=== PATIENT | male | born 1975 ===

== ENCOUNTER 2021-05-17 06:21 | Outpatient (REF) | payer OTHER, SELFPAY ==
[2021-05-17 06:56] LABS: MANUAL DIFF FLAG NO
[2021-05-17 06:59] LABS: Basophils Absolute Auto 0.1 X10*3/uL (0.0-0.2); Basophils Percent Auto 0.8 % (0-2); Eosinophils Absolute Auto 0.2 X10*3/uL (0.0-0.4); Eosinophils Percent Auto 2.1 % (0-4); Hematocrit 38.3 % (42-52); Hemoglobin 13.4 g/dl (14.0-18.0); Imm Gran Abs Auto 0.04 X10*3/uL (0.00-0.03); Imm Gran Pct Auto 0.5 % (0.0-0.4); Lymphocytes Absolute Auto 2.1 X10*3/uL (1.2-4.9); Lymphocytes Percent Auto 27.7 % (20-40); Mean Corpuscular Hemoglobin 31.5 pg (27.0-33.0); Mean Corpuscular Volume 90.1 fL (80-98); Mean Platelet Volume 9.6 fL (9.4-12.4); Monocytes Absolute Auto 0.6 X10*3/uL (0.1-1.2); Neutrophils Absolute Auto 4.7 X10*3/uL (2.0-8.3); Neutrophils Percent Auto 60.9 % (45-73); Platelet Count 316 X10*3/uL (160-400); Red Blood Count 4.25 X10*6/uL (4.60-5.80); Red Cell Distribution Width 12.4 % (11.0-16.0); White Blood Count 7.7 X10*3/uL (4.8-10.8)
[2021-05-17 07:01] LABS: Glucose Urine UA NEG (NEG); Leukocyte Esterase Urine NEG (NEG); Nitrite Urine NEG (NEG); Specific Gravity - Urine 1.025 (1.005-1.025); UACC Culture Trigger NO; Urine Blood 2+ (NEG); Urine Ketones NEG (NEG); Urine Protein NEG (NEG-TRACE)
[2021-05-17 07:03] LABS: Appearance Urine CLEAR; Color Urine YELLOW
[2021-05-17 07:13] LABS: Mucus Urine 2+ /LPF; WBC Urine 0-2 /HPF (0-4)
[2021-05-17 07:20] LABS: Alanine Aminotransferase 27 U/L (0-40); Albumin Level 4.3 g/dL (3.5-5.0); Alkaline Phosphatase 78 U/L (39-117); Anion Gap 9 (12-20); Aspartate Amino Transferase 18 U/L (5-37); Bilirubin Total 0.5 mg/dL (0.0-1.0); Blood Urea Nitrogen 10 mg/dL (9-16); Calcium 9.6 mg/dL (8.4-10.2); Carbon Dioxide 26 mmol/L (22-29); Chloride 109 mmol/L (96-108); Cholesterol 187 mg/dL; Estimated Glomerular Filt Rate > 60; Glucose Fasting 94 mg/dL (60-99); HDL Cholesterol 52 mg/dL; LDL Cholesterol Calculated 106 mg/dl; Potassium 4.1 mmol/L (3.3-5.1); Sodium 140 mmol/L (135-145); Total Protein 6.8 g/dL (6.5-8.0); Triglycerides 149 mg/dL
[2021-05-17 07:39] LABS: Prostate Specific Antigen Scr 1.77 ng/mL (<0.05-4.0); TSH reflex Free T4 1.17 uIU/mL (0.32-4.0); Vitamin D 25-OH Total 20.3 ng/mL (>30)
[2021-05-22 13:16] LABS: Treponema pallidum Ab FTA ABS Reactive (Nonreactive)
[2021-05-23 19:06] LABS: HSV 1 IgM IFA Negative (Negative); HSV 2 IgM IFA Negative (Negative)
== END 2021-05-17 06:22 | disposition home or self-care (01) ==
LOC: HO.LAB 06:21
PROVIDERS: PCP Internal Medicine; Visit Provider Internal Medicine
DX: Z00.00 Encounter for general adult medical examination without abnormal findings (principal); E78.00 Pure hypercholesterolemia, unspecified; E55.9 Vitamin D deficiency, unspecified; K13.70 Unspecified lesions of oral mucosa; Z86.19 Personal history of other infectious and parasitic diseases
CPT/HCPCS: 36415; 80053; 80061; 81001; 81003; 82306; 84153; 84443; 85025; 86695; 86696; 86780

== ENCOUNTER 2021-10-04 15:45 | Outpatient (REF) | payer OTHER, SELFPAY ==
--- NOTE | ~2021-10-04 | US_ITS ---
EXAMINATION: US RETROPERITONEAL LIMITED (RENAL ONLY) CLINICAL INFORMATION: Other microscopic hematuria. COMPARISON: CT abdomen and pelvis 12/05/2015. TECHNIQUE: Real-time imaging of the kidneys. FINDINGS: RIGHT KIDNEY: 11.6 x 5.0 x 5.1 cm (SAG x AP x TRV). The kidney is normal in size, contour, and echogenicity. Renal cortical thickness is normal. There is a 4 x 6 mm echogenic density in the cortex of the lower poles. Peripheral location is more suggestive of a cortical calcification or angiomyolipoma than a renal stone. No focal parenchymal lesions or hydronephrosis. LEFT KIDNEY: 10.5 x 6.0 x 6.0 cm (SAG x AP x TRV). The kidney is normal in size, contour, and echogenicity. Renal cortical thickness is normal. There is a 4 x 6 mm echogenic density in the midpole questionable for a stone. No focal parenchymal lesions or hydronephrosis. US/US renal BI IMPRESSION: Question left renal stone. 5 mm right lower pole echogenic lesion more suggestive of cortical calcification or angiomyolipoma than stone.
--- NOTE | ~2021-10-04 | XR_ITS ---
EXAMINATION: XR CHEST CLINICAL INFORMATION: Cough COMPARISON: 12/05/2015 TECHNIQUE: 2 views of the chest were obtained. FINDINGS: No significant abnormality is noted involving the heart, lungs, mediastinum, bony thorax or soft tissues. XR/XR chest 2V IMPRESSION: Unremarkable examination.
== END 2021-10-04 15:46 | disposition home or self-care (01) ==
LOC: HO.US 15:45
PROVIDERS: Visit Provider Internal Medicine
DX: R31.29 Other microscopic hematuria (principal); R05.9 Cough, unspecified; R09.89 Other specified symptoms and signs involving the circulatory and respiratory systems; F17.200 Nicotine dependence, unspecified, uncomplicated
CPT/HCPCS: 71046; 76775

== ENCOUNTER 2021-11-28 16:20 | Outpatient (REF) | payer OTHER, SELFPAY ==
[2021-11-29 07:52] LABS: Syphilis Screen Reactive (Nonreactive)
[2021-12-04 11:52] LABS: RPR Quantitative Non-Reactive (Nonreactive); T.Pallidum Particle Agg Test Reactive (Nonreactive)
== END 2021-11-28 16:21 | disposition home or self-care (01) ==
LOC: HO.LAB 16:20
PROVIDERS: PCP Internal Medicine; Visit Provider Internal Medicine
DX: Z11.3 Encounter for screening for infections with a predominantly sexual mode of transmission (principal); Z86.19 Personal history of other infectious and parasitic diseases
CPT/HCPCS: 36415; 86592; 86780

== ENCOUNTER 2022-08-05 18:53 | Emergency (ER) | payer OTHER, SELFPAY ==
--- NOTE | 2022-08-05 19:59 | ED.GENADULT ---
HPI - General Adult General Chief complaint: Fever <AYAN Hardy - Last Filed: 08/05/22 20:01> Stated complaint: Vomiting/Fever/Bodyaches <AYAN Hardy - Last Filed: 08/05/22 20:01> Time Seen by Provider: 08/05/22 21:56 <AYAN Hardy - Last Filed: 08/05/22 20:01> Source: patient <AYAN Hardy - Last Filed: 08/05/22 20:01> Mode of arrival: ambulatory <AYAN Hardy - Last Filed: 08/05/22 20:01> Limitations: no limitations <AYAN Hardy - Last Filed: 08/05/22 20:01> History of Present Illness HPI narrative: Patient with fever body aches rhinorrhea nausea diarrhea and dry cough for last 2 days his son is also sick no shortness of breath had low-grade fever <Arnav Bolton MD - Last Filed: 08/05/22 22:07> Related Data Home medications: Previous Rx's Medication Instructions Recorded benzonatate 200 mg capsule 200 mg PO TID PRN cough #30 caps 08/05/22 ibuprofen 600 mg tablet 600 mg PO Q6H PRN fever or pain 08/05/22 #30 tabs <AYAN Hardy - Last Filed: 08/05/22 20:01> Allergies/adverse reactions: Allergies Allergy/AdvReac Type Severity Reaction Status Date / Time No Known Allergies Allergy Verified 09/04/21 02:09 [No Known Allergies*] <AYAN Hardy - Last Filed: 08/05/22 20:01> Review of Systems Review of Systems: Yes all other systems are reviewed and are negative <Arnav Bolton MD - Last Filed: 08/05/22 22:07> PMFSH Past Medical History Medical History: Medical History Hyperlipemia Mixed hyperlipidemia Overweight (BMI 25.0-29.9) <AYAN Hardy - Last Filed: 08/05/22 20:01> Surgical History: Surgical History No history of previous surgery <AYAN Hardy - Last Filed: 08/05/22 20:01> Family History Family History: Family History Mother No problems noted. Father HTN (hypertension) <AYAN Hardy - Last Filed: 08/05/22 20:01> Social History Social History: Social History Housing: House Alcohol intake: former Patient Tobacco Use Status: Current everyday Tobacco user Cigarettes Per Day: 5 Second Hand Smoke Exposure: Yes Substance Use Type: Marijuana Advance Directives: No Advance Directives Information Provided: No service: No Current occupational status: employed <AYAN Hardy - Last Filed: 08/05/22 20:01> Physical Exam ED Vital Signs: Vital Signs - 24 hr 08/05/22 20:00 Temperature 101.2 F H Pulse Rate 83 Respiratory Rate 20 Blood Pressure 126/69 Pulse Oximetry 98 Oxygen Delivery Method Room Air BMI result Body Mass Index 30.4 <AYAN Hardy - Last Filed: 08/05/22 20:01> Vital Signs - 24 hr 08/05/22 20:00 Temperature 101.2 F H Pulse Rate 83 Respiratory Rate 20 Blood Pressure 126/69 Pulse Oximetry 98 Oxygen Delivery Method Room Air BMI result Body Mass Index 30.4 <Arnav Bolton MD - Last Filed: 08/05/22 22:07> Appearance: Alert. Oriented X3. No acute distress. ENT: Pharynx normal. Oral Mucosa moist Neck: Normal inspection. Neck supple. CVS: Normal heart rate and rhythm. Pulses normal. Respiratory: No respiratory distress. Equal air entry bilateral, no wheezing/rales/rhonchi Skin: Skin warm and dry. Normal skin color. Normal skin turgor. Extremities: No lower extremity edema. Neuro: Oriented X 3. <Arnav Bolton MD - Last Filed: 08/05/22 22:07> Course Course Course Narrative: RME performed by Gregoria Larkin PA-C. Patient is 46 year old male presenting to the department feeling generally unwell with body aches and a fever. COVID/RSV/Influenza and tylenol ordered. Patient placed back in the waiting room pending results and bed availability. <AYAN Hardy - Last Filed: 08/05/22 20:01> Medications Administered Discontinued Medications Generic Name Dose Route Start Last Admin Trade Name Freq PRN Reason Stop Dose Admin Acetaminophen 650 mg 08/05/22 20:01 08/05/22 20:05 Acetaminophen 325 Mg Tablet PO 08/05/22 20:02 650 mg ONCE ONE Administration <AYAN Hardy - Last Filed: 08/05/22 20:01> Medications Administered Discontinued Medications Generic Name Dose Route Start Last Admin Trade Name Freq PRN Reason Stop Dose Admin Acetaminophen 650 mg 08/05/22 20:01 08/05/22 20:05 Acetaminophen 325 Mg Tablet PO 08/05/22 20:02 650 mg ONCE ONE Administration <Arnav Bolton MD - Last Filed: 08/05/22 22:07> Medical Decision Making Lab Data Lab results reviewed: Yes I reviewed the patient's lab results. <Arnav Bolton MD - Last Filed: 08/05/22 22:07> Labs: Lab Results 08/05/22 Range/Units 20:07 Influenza Type A (PCR) POSITIVE A (Negative) Influenza Type B (PCR) NEGATIVE (Negative) RSV RNA Qual (PCR) NEGATIVE (Negative) SARS-CoV-2 RNA (RT-PCR) NEGATIVE (Negative) <AYAN Hardy - Last Filed: 08/05/22 20:01> Lab Results 08/05/22 Range/Units 20:07 Influenza Type A (PCR) POSITIVE A (Negative) Influenza Type B (PCR) NEGATIVE (Negative) RSV RNA Qual (PCR) NEGATIVE (Negative) SARS-CoV-2 RNA (RT-PCR) NEGATIVE (Negative) <Arnav Bolton MD - Last Filed: 08/05/22 22:07> Discharge Plan Discharge Clinical Impression: Influenza <AYAN Hardy - Last Filed: 08/05/22 20:01> Patient Disposition: Home, Self-Care <AYAN Hardy - Last Filed: 08/05/22 20:01> Instructions: Influenza (ED) <AYAN Hardy - Last Filed: 08/05/22 20:01> Additional Instructions: Stay hydrated Tylenol/Motrin for fever Cough drops as prescribed Social distancing as advised <AYAN Hardy - Last Filed: 08/05/22 20:01> Prescriptions: New benzonatate 200 mg capsule 200 mg PO TID PRN (Reason: cough) Qty: 30 0RF ibuprofen 600 mg tablet 600 mg PO Q6H PRN (Reason: fever or pain) Qty: 30 0RF <AYAN Hardy - Last Filed: 08/05/22 20:01> Stand Alone Forms: Work/School Release <AYAN Hardy - Last Filed: 08/05/22 20:01>
[2022-08-05 20:00] VITALS: BP 126/69; PULSE 83; RESP 20; TEMP 38.4; O2SAT 98; BMI 30.4
[2022-08-05] MEDS: Acetaminophen 325 MG TABLET 650 MG PO (20:05)
[2022-08-05 20:53] LABS: Influenza A PCR POSITIVE (Negative); Influenza B PCR NEGATIVE (Negative); Resp Syncy Virus RNA Qual PCR NEGATIVE (Negative); SARS COV2 PCR INHOUSE NEGATIVE (Negative)
[2022-08-05] MEDS: Ibuprofen 600 MG TABLET PO (22:41)
[2022-08-05] MEDS: Benzonatate 100 MG CAPSULE 200 MG PO (22:49)
--- NOTE | 2022-08-05 22:53 | PC.NURSE ---
Discharge instructions given and explained. Patient ambulates safely and independently. No apparent distress. All of patient's questions answered.
== END 2022-08-05 22:56 | disposition home or self-care (01) ==
PROVIDERS: Physician Assistant Medical; Emergency Provider Internal Medicine
DX: J10.1 Influenza due to other identified influenza virus with other respiratory manifestations (principal); R50.9 Fever, unspecified; M79.10 Myalgia, unspecified site; R05.9 Cough, unspecified; F17.210 Nicotine dependence, cigarettes, uncomplicated; Z20.822 Contact with and (suspected) exposure to COVID-19; Z71.6 Tobacco abuse counseling; Z79.899 Other long term (current) drug therapy
CPT/HCPCS: 0241U; 99283

== ENCOUNTER 2023-04-17 08:24 | Outpatient (REF) | payer OTHER, SELFPAY ==
[2023-04-17 08:37] LABS: MANUAL DIFF FLAG NO
[2023-04-17 09:43] LABS: Basophils Absolute Auto 0.1 X10*3/uL (0.0-0.2); Basophils Percent Auto 0.5 % (0-2); Eosinophils Absolute Auto 0.2 X10*3/uL (0.0-0.4); Eosinophils Percent Auto 1.7 % (0-4); Hematocrit 39.8 % (42.0-52.0); Hemoglobin 13.7 g/dl (14.0-18.0); Imm Gran Abs Auto 0.04 X10*3/uL (0.00-0.03); Imm Gran Pct Auto 0.4 % (0.0-0.4); Lymphocytes Absolute Auto 2.1 X10*3/uL (1.2-4.9); Lymphocytes Percent Auto 22.2 % (20-40); Mean Corpuscular HGB Conc 34.4 g/dl (31.0-36.0); Mean Corpuscular Hemoglobin 31.1 pg (27.0-33.0); Mean Corpuscular Volume 90.2 fL (80.0-98.0); Mean Platelet Volume 10.3 fL (9.4-12.4); Monocytes Absolute Auto 0.6 X10*3/uL (0.1-1.2); Monocytes Percent Auto 5.9 % (2-11); Neutrophils Absolute Auto 6.7 x10*3/uL (2.0-8.3); Neutrophils Percent Auto 69.3 % (45-73); Platelet Count 318 X10*3/uL (160-400); Red Blood Count 4.41 X10*6/uL (4.60-5.80); Red Cell Distribution Width 11.9 % (11.0-16.0); White Blood Count 9.6 X10*3/uL (4.8-10.8)
[2023-04-17 10:12] LABS: Urine Cytology See Pathology rpt
[2023-04-17 10:32] LABS: Appearance Urine Clear; Color Urine Yellow; Glucose Urine UA Negative (Negative); Leukocyte Esterase Urine Negative (Negative); Nitrite Urine Negative (Negative); Specific Gravity - Urine 1.025 (1.005-1.025); UMIC TRIGGER UACC YES; Urine Blood Moderate (2+) (Negative); Urine Ketones Trace mg/dL (Negative); Urine Protein Negative (Neg-Trace)
[2023-04-17 10:41] LABS: Bacteria Urine None Seen (None Seen); Hyaline Casts Urine 0-2 /LPF (0-2); Squamous Epithelial Cell Urine 0-2 /HPF (0-2); WBC Urine 0-5 /HPF (0-5)
[2023-04-17 10:56] LABS: Alanine Aminotransferase 18 U/L (0-40); Albumin Level 4.3 g/dL (3.5-5.0); Alkaline Phosphatase 83 U/L (39-117); Anion Gap 11 (12-20); Aspartate Amino Transferase 19 U/L (5-37); Bilirubin Total 0.6 mg/dL (0.0-1.0); Blood Urea Nitrogen 14 mg/dL (9-16); Calcium 9.7 mg/dL (8.4-10.2); Carbon Dioxide 24 mmol/L (22-29); Chloride 109 mmol/L (96-108); Cholesterol 165 mg/dL; Estimated Glomerular Filt Rate > 60; Glucose Fasting 90 mg/dL (60-99); HDL Cholesterol 43 mg/dL; LDL Cholesterol Calculated 100 mg/dl; Potassium 4.2 mmol/L (3.3-5.1); Sodium 140 mmol/L (135-145); Total Protein 7.4 g/dL (6.5-8.0); Triglycerides 110 mg/dL
[2023-04-17 10:57] LABS: Prostate Specific Antigen Scr 0.82 ng/mL (<0.05-4.0)
[2023-04-17 11:14] LABS: TSH reflex Free T4 0.63 uIU/mL (0.32-4.0); Vitamin D 25-OH Total 30.1 ng/mL (>30)
== END 2023-04-17 08:25 | disposition home or self-care (01) ==
LOC: HO.LAB 08:24
PROVIDERS: PCP Internal Medicine; Visit Provider Internal Medicine
DX: Z01.818 Encounter for other preprocedural examination (principal); E78.00 Pure hypercholesterolemia, unspecified; K59.00 Constipation, unspecified; R30.0 Dysuria; R31.1 Benign essential microscopic hematuria; E55.9 Vitamin D deficiency, unspecified; Z12.5 Encounter for screening for malignant neoplasm of prostate
CPT/HCPCS: 36415; 80053; 80061; 81001; 82306; 84153; 84443; 85025; 88112

== ENCOUNTER 2023-04-17 11:18 | Outpatient (AMB) | payer OTHER, SELFPAY ==
[2023-04-17 11:37] VITALS: BP 127/69; PULSE 62; BMI 30.8
--- NOTE | 2023-04-17 11:37 | MHC.OFFVIS ---
Intake Vital Signs 04/17/23 11:37 Height 5 ft 8 in Weight 202 lb 6.15 oz BMI 30.8 BP 127/69 Blood Pressure Location Lt brachial Position Sitting Pulse 62 Intake Visit Reasons: Colonoscopy Screening Intake Note: Ruben presents in office as a new.patient for a colonoscopy screening . PT CC: pt reports having GERD pt denies any other GI Issues Community Representative Required: No Accompanied by: Self / Same As Patient Allergies No Known Allergies [No Known Allergies*] Allergy (Verified 04/17/23 11:39) HPI Colonoscopy Screening HPI Details 47 year old? male here today for pre colonoscopy screening.? Patient was sent to us by his PCP.? This is his first colonoscopy screening.? Patient denies any gastrointestinal symptoms in the past or at present.? However patient does report occasional acid reflux depending on what he eats. Reports occasional constipation. Denies melena, hematochezia, unintentional weight loss or ribbon like stools. Denies any personal or family history of gastrointestinal disease, colon polyps, or cancer.? Denies history of difficulty with sedation or anesthesia in the past.? Negative for history of sleep apnea.? Denies any history of cardiac, renal, pulmonary, or hepatic disease.?? No history of infectious? diseases like hepatitis A, B, C, HIV or tuberculosis.? Patient is not on any anticoagulation therapy. PFSH Medical History Mixed hyperlipidemia Overweight (BMI 25.0-29.9) Smoker Surgical History No history of previous surgery Family History Mother No problems noted. Father HTN (hypertension) Social History Housing: House Alcohol intake: former Patient Tobacco Use Status: Current everyday Tobacco user Cigarettes Per Day: 5 e-Cigarette/Vaping Use: Never Used Second Hand Smoke Exposure: Yes Substance Use Type: Marijuana service: No Current occupational status: employed Cognitive needs: No Hearing needs: No Vision needs: No Review of Systems Const Denies weight gain and Denies weight loss ENT Reports no additional complaints, Denies dysphagia and Denies odynophagia Card Reports no additional complaints Resp Reports no additional complaints GI Denies abdominal pain, Denies belching, Denies melena, Denies bloating, Denies change in bowel habits, Denies dysphagia, Denies excessive flatus, Denies dyspepsia, Reports heartburn (Occasional), Denies diarrhea, Denies loose stools, Denies nausea, Denies odynophagia and Denies vomiting Reports no additional complaints Musc Reports no additional complaints Neuro Reports no additional complaints Psych Reports no additional complaints Endo Reports no additional complaints Physical Exam Vital Signs: Last Vital Signs Pulse 62 04/17/23 11:37 BP 127/69 04/17/23 11:37 BMI result Body Mass Index 30.8 Const General: healthy appearing, no acute distress and well developed Nutritional Appearance: obese Orientation/consciousness: patient oriented x3 HEENT Head: Yes normal to inspection, Yes normocephalic and Yes atraumatic Face and sinus: Yes normal facial exam Mouth: Normal oral and palatal mucosa present Throat: Yes posterior oropharynx normal, Yes tonsils normal and Yes uvula midline Eyes General: appearance normal, both eyes and all related structures Neck Neck: Yes normal visual inspection, Yes full ROM and Yes trachea midline Thyroid: Thyroid normal Resp Effort & Inspection: normal respiratory effort, able to speak in complete sentences, no tracheal deviation and symmetric chest movement Auscultation: clear to auscultation bilaterally Cardio Rate: regular rate Heart sounds: S1 normal heart sound present and S2 normal heart sound present GI Inspection: Yes normal to inspection, No distended and Yes obesity Palpation (GI): Soft to palpation, not firm, nontender and No hepatosplenomegaly present Auscultation: normal bowel sounds General: Yes no CVA tenderness Back/Spine/Pelvis Back: no CVA tenderness Skin General skin exam: elasticity normal, turgor normal and dry skin Neuro General: patient oriented x3 Psych Appearance: grossly normal Mental Status: mental status grossly normal Speech and movement: Normal speech and movement present Assessment & Plan Assessment & Plan (1) Colon cancer screening: Code(s): Z12.11 - Encounter for screening for malignant neoplasm of colon Plan: Patient denies any GI, cardiac or respiratory symptoms.? Denies any issues with anesthesia in the past.? Denies any history of sleep apnea.? No history infectious diseases in the past or present.? Not on any anticoagulation therapy.? No family or personal history of colon cancer or polyps.? Patient denies melena, hematochezia, unintentional weight loss or ribbon like stools.? Discussed at length the pre-procedure,? prep, diet & medications as well as what to expect prior, during and after the procedure.?? Stressed the importance of good bowel prep. ?Recommended the use of Vaseline or Calmoseptine OTC & baby wipes with bowel movements to promote comfort.? ?Patient verbalizes understanding and agrees to plan of care.? She was given the opportunity to ask questions and all questions answered.? We will see her after the procedure.? Medications: New bisacodyl (Dulcolax (bisacodyl)) take 2 tabs at noon the day before your colonoscopy 10 mg (2 x 5 mg) PO ONCE 1 day 2 tabs 0RF Z12.11 - Encounter for screening for malignant neoplasm of colon docusate sodium 100 mg PO BEDTIME 90 caps 3RF K59.00 - Constipation, unspecified polyethylene glycol 3350 (Miralax) As directed by gastroenterology department at [facility] 238 grams PO ONCE 238 grams 0RF Z12.11 - Encounter for screening for malignant neoplasm of colon Coding Level of Care Code New Pt Level 3 (51776) Diagnoses Colon cancer screening Z12.11 Time Spent (min) 40 Comment 30 minutes spent with patient and additional 10 minutes spent reviewing his records
== END 2023-04-17 12:05 | disposition home or self-care (01) ==
PROVIDERS: PCP Internal Medicine; Visit Provider Nurse Practitioner Family
DX: Z01.818 Encounter for other preprocedural examination (principal); Z12.11 Encounter for screening for malignant neoplasm of colon
CPT/HCPCS: S0285

== ENCOUNTER 2023-12-28 09:56 | Emergency (ER) | payer BC, SELFPAY ==
--- NOTE | ~2023-12-28 | CT_ITS ---
EXAMINATION: CT FACIAL BONES WITH CONTRAST CLINICAL INFORMATION: Question right-sided dental abscess. TMJ pain. COMPARISON: None available. TECHNIQUE: Multidetector helical imaging acquired in the axial plane following intravenous administration of 85 mL of Omnipaque 350. This CT examination was performed using dose optimization techniques as appropriate, variously including the following: *Automated exposure control *Adjustment of mA and/or kV according to patient size (this includes techniques or standardized protocols for targeted exams where dose is matched to indication/reason for exam; i.e. extremities or head) *Use of iterative reconstruction technique DLP: 281 mGy-cm FINDINGS: No periapical lucencies are seen in the dentition. There is what may represent a small remnant of a severely broken down right mandibular molar tooth with associated dental caries. The remaining dentition appears normal. No gingivobuccal soft tissues inflammatory changes are clearly seen, though assessment is somewhat limited due to dental amalgam artifacts from the right second maxillary molar. The oral cavity, pharyngeal mucosal space, and imaged larynx appears normal. No abnormal retropharyngeal fluid collection is seen. The carotid sheath vasculature opacifies normally. The submandibular and parotid glands are normal. No upper cervical adenopathy is seen. The temporomandibular joints are normal. The middle ear cavities and mastoid air cells are well aerated. The paranasal sinuses are clear. Leftward nasal septal deviation noted. The orbits are normal in appearance. The craniovertebral junction is normal. Mild to moderate spondylosis partially visualized at the C5-C6 level. The imaged portions of the brain demonstrate no acute abnormality. CT/CT facial bones w IV con IMPRESSION: Small remnant of what may represent a severely broken down right mandibular molar tooth with associated dental caries. No periapical disease otherwise seen. No discernible soft tissue fluid collection or cervical adenopathy. Correlate with findings on direct visual inspection.
[2023-12-28 10:02] VITALS: BP 126/90; PULSE 90; RESP 16; TEMP 37; O2SAT 100; BMI 25.5
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
[2023-12-28 11:07] LABS: MANUAL DIFF FLAG NO
[2023-12-28 11:16] LABS: Basophils Absolute Auto 0.1 X10*3/uL (0.0-0.2); Basophils Percent Auto 0.7 % (0-2); Eosinophils Absolute Auto 0.2 X10*3/uL (0.0-0.4); Eosinophils Percent Auto 1.4 % (0-4); Hematocrit 36.6 % (42.0-52.0); Hemoglobin 12.9 g/dl (14.0-18.0); Imm Gran Abs Auto 0.03 X10*3/uL (0.00-0.03); Imm Gran Pct Auto 0.3 % (0.0-0.4); Lymphocytes Absolute Auto 2.2 X10*3/uL (1.2-4.9); Lymphocytes Percent Auto 19.8 % (20-40); Mean Corpuscular HGB Conc 35.2 g/dl (31.0-36.0); Mean Corpuscular Hemoglobin 31.6 pg (27.0-33.0); Mean Corpuscular Volume 89.7 fL (80.0-98.0); Mean Platelet Volume 9.4 fL (9.4-12.4); Monocytes Absolute Auto 0.7 X10*3/uL (0.1-1.2); Monocytes Percent Auto 5.8 % (2-11); Neutrophils Absolute Auto 8.1 x10*3/uL (2.0-8.3); Platelet Count 300 X10*3/uL (160-400); Red Blood Count 4.08 X10*6/uL (4.60-5.80); Red Cell Distribution Width 12.2 % (11.0-16.0); White Blood Count 11.2 X10*3/uL (4.8-10.8)
[2023-12-28 11:19] LABS: Appearance Urine Clear; Color Urine Yellow; Glucose Urine UA Negative (Negative); Leukocyte Esterase Urine Negative (Negative); Nitrite Urine Negative (Negative); Specific Gravity - Urine 1.025 (1.005-1.025); UMIC TRIGGER UACC YES; Urine Blood Small (1+) (Negative); Urine Ketones Negative (Negative); Urine Protein Negative (Neg-Trace)
[2023-12-28 11:21] LABS: Bacteria Urine None Seen (None Seen); Hyaline Casts Urine 0-2 /LPF (0-2); Squamous Epithelial Cell Urine 0-2 /HPF (0-2); WBC Urine 0-5 /HPF (0-5)
[2023-12-28 11:22] LABS: Alanine Aminotransferase 27 U/L (0-40); Albumin Level 4.1 g/dL (3.5-5.0); Alkaline Phosphatase 75 U/L (39-117); Anion Gap 9 (12-20); Aspartate Amino Transferase 25 U/L (5-37); Bilirubin Total 0.5 mg/dL (0.0-1.0); Blood Urea Nitrogen 11 mg/dL (9-16); Carbon Dioxide 25 mmol/L (22-29); Chloride 111 mmol/L (96-108); Creatinine Clr Calc Pharmacy 91.8; Estimated Glomerular Filt Rate > 60; Glucose Random 99 mg/dL (60-115); Potassium 4.1 mmol/L (3.3-5.1); Sodium 141 mmol/L (135-145); Total Protein 6.9 g/dL (6.5-8.0)
[2023-12-28 11:22] LABS: IDNOW Serial# 08D9AD1C
[2023-12-28 11:23] LABS: Strep A Nucleic Acid Negative (Negative)
[2023-12-28 11:26] LABS: Influenza A PCR NEGATIVE (Negative); Influenza B PCR NEGATIVE (Negative); Resp Syncy Virus RNA Qual PCR NEGATIVE (Negative); SARS COV2 PCR INHOUSE NEGATIVE (Negative)
[2023-12-28 11:27] LABS: Amphetamine Screen Urine Not Detected (Not Detect); Barbiturates, Urine Not Detected (Not Detect); Benzodiazepines Screen Urine Not Detected (Not Detect); Buprenorphine Scr Not Detected (Not Detect); Cannabinoid Screen Urine POSITIVE (Not Detect); Cocaine Screen Urine Not Detected (Not Detect); Fentanyl, urine Not Detected (Not Detect); Methadone Screen, Urine Not Detected (Not Detect); Opiate Screen Urine Not Detected (Not Detect); Oxycodone Screen Urine Not Detected (Not Detect); Phencyclidine Screen Urine Not Detected (Not Detect)
[2023-12-28] MEDS: iohexoL 350 MG/ML 100 ML INFUS..BTL IV (11:41)
[2023-12-28] MEDS: diazePAM 2 MG TABLET PO (11:44)
[2023-12-28] MEDS: Ketorolac Tromethamine 15 MG/ML VIAL 30 MG IVPUSH (11:44)
--- NOTE | 2023-12-28 11:49 | PC.NURSE ---
called lab as tech sent covid/flu/rsv swab earlier and still says ordered. per batool brock ok to eat- pt eating w/o issues. no resp distress.
[2023-12-28 13:39] VITALS: BP 110/71; PULSE 88; RESP 18; TEMP 37; O2SAT 100
== END 2023-12-28 13:30 | disposition home or self-care (01) ==
PROVIDERS: Physician Assistant; Emergency Provider Emergency Medicine; PCP Internal Medicine
DX: R68.84 Jaw pain (principal); K04.7 Periapical abscess without sinus; J02.9 Acute pharyngitis, unspecified; R05.9 Cough, unspecified; E78.2 Mixed hyperlipidemia; F17.200 Nicotine dependence, unspecified, uncomplicated; Z11.52 Encounter for screening for COVID-19; Z20.828 Contact with and (suspected) exposure to other viral communicable diseases; Z79.899 Other long term (current) drug therapy
CPT/HCPCS: 0241U; 36415; 70487; 80053; 80307; 81001; 85025; 87651; 96374; 99284; J1885; Q9967

== ENCOUNTER 2023-12-31 13:05 | Emergency (ER) | payer BC, SELFPAY ==
[2023-12-31 13:34] VITALS: BP 148/82; PULSE 83; RESP 20; TEMP 37; O2SAT 100; BMI 24.7
--- NOTE | 2023-12-31 13:34 | ED_ITS ---
HPI - General Adult General Chief complaint: Behavioral Concerns Stated complaint: Feels hyper? Wants to be checked Time Seen by Provider: 12/31/23 14:43 Source: patient Mode of arrival: EMS Limitations: no limitations History of Present Illness HPI narrative: 48-year-old male with no past medical history of past psychiatric history that he reports who presents emergency department for evaluation of gosia. The patient states that 3 or 4 days ago he drank 20 red bolus and since that time he has not been able to sleep. He states he has only been able to sleep 2-3 hours per night. He states that he has had a good appetite and has had no weight loss or weight gain. He denied fever, chills or night sweats. The patient told me that his and his boss our concern that he has gosia. The patient states that he loves everybody and his and boss were concerned that he might get hurt because of his behavior. 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 the patient states he does smoke cigarettes. He denies alcohol use. He states that he does smoke marijuana 3 times a day but does not use any other drugs. Patient denies SI or HI. Related Data Previous Rx's ?Medication ?Instructions ?Recorded loratadine 10 mg tablet 10 mg PO DAILY PRN allergy 01/23/23 symptoms 90 days #90 tabs bisacodyl 5 mg tablet,delayed 10 mg (2 x 5 mg) PO ONCE 1 day #2 04/17/23 release (Dulcolax (bisacodyl)) tabs docusate sodium 100 mg capsule 100 mg PO BEDTIME #90 caps 04/17/23 polyethylene glycol 3350 17 238 g PO ONCE #238 grams 04/17/23 gram/dose oral powder (Miralax) amoxicillin 875 mg-potassium 1 tab PO BID 7 days #14 tabs 12/28/23 clavulanate 125 mg tablet cyclobenzaprine 10 mg tablet 10 mg PO BEDTIME PRN muscle spasm 12/28/23 #7 tabs ketorolac 10 mg tablet 10 mg PO TID PRN pain 5 days #15 12/28/23 tabs Allergies Allergy/AdvReac Type Severity Reaction Status Date / Time No Known Allergies Allergy Verified 12/31/23 13:39 [No Known Allergies*] Review of Systems 2 Review of Systems: Yes all other systems are reviewed and are negative [facility] Past Medical History Medical History Overweight (BMI 25.0-29.9) Smoker Mixed hyperlipidemia Surgical History No history of previous surgery Family History Family History Mother No problems noted. Father HTN (hypertension) Social History Social History Housing: House Alcohol intake: never Patient Tobacco Use Status: Current everyday Tobacco user Cigarettes Per Day: 5 Smoked in Last 30 Days: Yes e-Cigarette/Vaping Use: Never Used Second Hand Smoke Exposure: Yes Use of substances other than those prescribed or required for medical reasons: Yes Substance Use Type: Marijuana Substance Use Frequency: Daily Last Used Substance: Hours (ago) Any prior treatment program specific to substance use: No Advance Directives: No Advance Directives Information Provided: Yes Do you have a plan to hurt others: No Plan service: No Current occupational status: employed Cognitive needs: No Hearing needs: No Vision needs: No Physical Exam ED Vital Signs: Vital Signs - 24 hr 12/31/23 13:34 12/31/23 15:09 Temperature 98.6 F 98.9 F Pulse Rate 83 69 Respiratory Rate 20 18 Blood Pressure 148/82 H 127/71 Pulse Oximetry 100 99 Oxygen Delivery Method Room Air Room Air BMI result Body Mass Index 24.7 Vital signs revealed an elevated blood pressure of 148/82 in an elevated respiratory rate of 20 Exam: General: Awake, alert in no distress, patient does appear to be manic Head: Normocephalic, atraumatic EENT: PERRL, Lids normal, sclera normal, conjunctiva normal, nose normal , ears normal, throat without erythema or exudates Neck: Supple, no adenopathy Lung: breath sounds symmetric, no wheezing, rales or rhonchi Chest: symmetric movement, nontender Heart: regular rate and rhythm, normal S1, S2 no murmurs or rubs Abdomen: soft, non-tender, nondistended, normal bowel sounds Back: no vertebral tenderness, no CVAT Extremities: no deformities, moves all extremities symmetrically Neuro: Awake, alert, oriented, normal speech, cranial nerves intact, moves all extremities symmetrically Psych: patient appears to be very happy and manic, has very rapid speech , he states he loves every but any loves everybody in the [employer] Course Course Course Narrative: This is an RME: Additional HPI, ROS, PE not included below will be deferred to primary provider. This is a 18-wzbj-myb-male, with a hx of HLD, who presents to the ER with complaints of too much energy . Pt states that 3 days ago he has felt like I have too much power, energy, this is not me . He states that he has been drinking alot of red bull , he states that two nights ago he had about 10 red bulls. He states that he was seen at HR from his job due to concerns for his hyperness. No suicidal or homicidal ideation. No visual or auditory hallucination. Patient with pressured speech, excessive energy, however thoughts circumstantial and tangential. Plan: Labs, EKG Medications Administered Discontinued Medications Generic Name Dose Route Start Last Admin Trade Name Freq PRN Reason Stop Dose Admin Lorazepam 2 mg 12/31/23 15:21 12/31/23 15:27 Lorazepam 1 Mg Tablet PO 12/31/23 15:22 2 mg ONCE STA Administration Medical Decision Making Medical Decision Making [facility] Narrative: 48-year-old male with no significant past medical history or psychiatric history who was brought to the emergency department for evaluation of gosia and sleeping for only 2-3 hours per day over the last 3-4 days. The patient states he drank 10-20 red bull drinks 3 days prior but has not had any since that time. Patient was noted to be manic by his in his employer and was brought to emergency department for evaluation. Patient's vital signs revealed an elevated blood pressure and elevated respiratory rate otherwise was unremarkable. The patient does smoke marijuana 3 times a day but denies using any other drugs. Physical examination is consistent with acute gosia.Patient denies SI or HI. Differential diagnosis: Includes but is not limited to Anxiety, gosia, electrolyte abnormalities, anemia, hyperthyroidism Following evaluation was ordered: CBC, BMP, liver panel,, TSH with reflex T4, UA,, ethanol level, troponin, EKG Patient was initially treated with the following: Ativan 2 mg orally Course: 16:35 My independent interpretation patient's laboratory evaluation as follows: Normocytic anemia with an H&H of 12.1 and 34.2. BNP and liver panel were normal. Drug screen urine positive for marijuana only. Ethanol below detectable limits. The patient's TSH was normal. Urinalysis was positive for blood. Microscopic revealed 11-20 RBCs, 0-5 WBCs and no bacteria. Given the patient's negative workup, I suspect that his gosia is psychiatric and at this point he is medically cleared for care team evaluation. 17:40 The patient was evaluated by the care team. I did speak with the patient with the care team provider and during the interview, patient appeared to be last manic. Patient is not paranoid, he has not suicidal or homicidal. He seems motivated to continue to work at [employer] and states that stopped working at [employer] since he had dry on energy drinks in order to stay awake. The care team provider did talk to the patient's who feels comfortable with the patient being discharged home. Care team will arrange follow-up over the next several days to evaluate the patient for possibly worsening gosia. Patient was given printed and verbal instructions and discharged home. Admission/Observation Consideration of admission/observation: Escalation of care including admission/observation considered Consult Healthcare Provider Management of the patient was discussed with: [employer] (Care team) Lab Data MDM Lab Attestation statement: I reviewed the patient's lab results. 12/31/23 13:56 12/31/23 13:56 Labs: Lab Results 12/31/23 Range/Units 13:56 WBC 9.6 (4.8-10.8) X10*3/uL RBC 3.81 L (4.60-5.80) X10*6/uL Hgb 12.1 L (14.0-18.0) g/dl Hct 34.2 L (42.0-52.0) % MCV 89.8 (80.0-98.0) fL MCH 31.8 (27.0-33.0) pg MCHC 35.4 (31.0-36.0) g/dl RDW 12.4 (11.0-16.0) % Plt Count 294 (160-400) X10*3/uL MPV 9.8 (9.4-12.4) fL Immature Gran % (Auto) 0.3 (0.0-0.4) % Neut % (Auto) 78.3 H (45-73) % Lymph % (Auto) 15.4 L (20-40) % [place] % (Auto) 5.0 (2-11) % Eos % (Auto) 0.4 (0-4) % Baso % (Auto) 0.6 (0-2) % Lymph # (Auto) 1.5 (1.2-4.9) X10*3/uL [place] # (Auto) 0.5 (0.1-1.2) X10*3/uL Eos # (Auto) 0.0 (0.0-0.4) X10*3/uL Baso # (Auto) 0.1 (0.0-0.2) X10*3/uL Abs Immat Gran (auto) 0.03 (0.00-0.03) X10*3/uL Absolute Neuts (auto) 7.5 (2.0-8.3) x10*3/uL Absolute Nucleated RBC 0.000 (0.0-0.012) X10*3/uL Nucleated RBC % (auto) 0.0 (0.0-0.2) /100WBC Sodium 140 (135-145) mmol/L Potassium 3.8 (3.3-5.1) mmol/L Chloride 109 H (96-108) mmol/L Carbon Dioxide 27 (22-29) mmol/L Anion Gap 8 L (12-20) BUN 17 H (9-16) mg/dL Creatinine 1.12 (0.5-1.4) mg/dL Estim Creat Clear Calc 79.7 Estimated GFR > 60 Random Glucose 98 (60-115) mg/dL Calcium 9.2 (8.4-10.2) mg/dL Total Bilirubin 0.4 (0.0-1.0) mg/dL Direct Bilirubin 0.1 (0.0-0.5) mg/dL AST 38 H (5-37) U/L ALT 35 (0-40) U/L Alkaline Phosphatase 74 (39-117) U/L Troponin I High Sens < 2.7 (<3.5-35.0) ng/L Total Protein 7.1 (6.5-8.0) g/dL Albumin 4.4 (3.5-5.0) g/dL TSH 0.65 (0.32-4.0) uIU/mL Urine Color Yellow Urine Appearance Clear Urine pH 7.5 (5.0-9.0) Ur Specific [place] 1.025 (1.005-1.025) Urine Protein Negative (Neg-Trace) mg/dL Urine Glucose (UA) Negative (Negative) mg/dL Urine Ketones Negative (Negative) mg/dL Urine Blood Small (1+) H (Negative) Urine Nitrite Negative (Negative) Ur Leukocyte Esterase Negative (Negative) Urine RBC 11-20 H (0-2) /HPF Urine WBC 0-5 (0-5) /HPF Ur Squamous Epith Cells 0-2 (0-2) /HPF Urine Bacteria None Seen (None Seen) Hyaline Casts 0-2 (0-2) /LPF Urine Opiates Screen Not Detected (Not Detect) Ur Buprenorphine Scrn Not Detected (Not Detect) ng/mL Ur Oxycodone Screen Not Detected (Not Detect) ng/mL Urine Methadone Screen Not Detected (Not Detect) ng/mL Urine Fentanyl Screen Not Detected (Not Detect) Ur Barbiturates Screen Not Detected (Not Detect) Ur Phencyclidine Scrn Not Detected (Not Detect) Ur Amphetamines Screen Not Detected (Not Detect) U Benzodiazepines Scrn Not Detected (Not Detect) Urine Cocaine Screen Not Detected (Not Detect) U Marijuana (THC) Screen POSITIVE H (Not Detect) Ethyl Alcohol < 10 mg/dL Discharge Plan Discharge Clinical Impression: Insomnia, Gosia Patient Disposition: Home, Self-Care Additional Instructions: Your evaluated by the care team and by me. At this time, we feel that it is okay to send you home, however if you feel like your had too much energy again, if you feel like people are against you or you feel like you are going to hurt yourself or others, then you should return to the emergency department so that we can re-evaluate you and help you with these new feelings.. Please follow the care team instructions. Follow-up with your doctor in 2 days. Please return to the emergency department if your symptoms get worse or if you develop any symptoms that are concerning to you. Prescriptions: No Action cyclobenzaprine 10 mg tablet 10 mg PO BEDTIME PRN (Reason: muscle spasm) Qty: 7 0RF ketorolac 10 mg tablet 10 mg PO TID PRN (Reason: pain) 5 Days Qty: 15 0RF amoxicillin-pot clavulanate 875-125 mg tablet 1 tab PO BID 7 Days Qty: 14 0RF loratadine 10 mg tablet 10 mg PO DAILY PRN (Reason: allergy symptoms) 90 Days Qty: 90 3RF bisacodyl [Dulcolax (bisacodyl)] 5 mg tablet,delayed release (DR/EC) 10 mg PO ONCE 1 Days Qty: 2 0RF Rx Instructions: take 2 tabs at noon the day before your colonoscopy docusate sodium 100 mg capsule 100 mg PO BEDTIME Qty: 90 3RF polyethylene glycol 3350 [Miralax] 17 gram/dose powder 238 g PO ONCE Qty: 238 0RF Rx Instructions: As directed by gastroenterology department at [facility] Print Language: Russian
--- NOTE | 2023-12-31 13:41 | ECG_ITS ---
Test Reason : anxiety Blood Pressure : / mmHG Vent. Rate : 075 BPM Atrial Rate : 075 BPM P-R Int : 152 ms QRS Dur : 092 ms QT Int : 374 ms P-R-T Axes : 068 063 065 degrees QTc Int : 417 ms Normal sinus rhythm Normal ECG No previous ECGs available Referred By: Yocasta Brenner Electronically Signed By:SOO POPE MD
[2023-12-31 14:03] LABS: MANUAL DIFF FLAG NO
[2023-12-31 14:15] LABS: Amphetamine Screen Urine Not Detected (Not Detect); Barbiturates, Urine Not Detected (Not Detect); Benzodiazepines Screen Urine Not Detected (Not Detect); Buprenorphine Scr Not Detected (Not Detect); Cannabinoid Screen Urine POSITIVE (Not Detect); Cocaine Screen Urine Not Detected (Not Detect); Fentanyl, urine Not Detected (Not Detect); Methadone Screen, Urine Not Detected (Not Detect); Opiate Screen Urine Not Detected (Not Detect); Oxycodone Screen Urine Not Detected (Not Detect); Phencyclidine Screen Urine Not Detected (Not Detect)
[2023-12-31 14:20] LABS: Basophils Absolute Auto 0.1 X10*3/uL (0.0-0.2); Basophils Percent Auto 0.6 % (0-2); Eosinophils Percent Auto 0.4 % (0-4); Hematocrit 34.2 % (42.0-52.0); Hemoglobin 12.1 g/dl (14.0-18.0); Imm Gran Abs Auto 0.03 X10*3/uL (0.00-0.03); Imm Gran Pct Auto 0.3 % (0.0-0.4); Lymphocytes Absolute Auto 1.5 X10*3/uL (1.2-4.9); Lymphocytes Percent Auto 15.4 % (20-40); Mean Corpuscular HGB Conc 35.4 g/dl (31.0-36.0); Mean Corpuscular Hemoglobin 31.8 pg (27.0-33.0); Mean Corpuscular Volume 89.8 fL (80.0-98.0); Mean Platelet Volume 9.8 fL (9.4-12.4); Monocytes Absolute Auto 0.5 X10*3/uL (0.1-1.2); Neutrophils Absolute Auto 7.5 x10*3/uL (2.0-8.3); Neutrophils Percent Auto 78.3 % (45-73); Platelet Count 294 X10*3/uL (160-400); Red Blood Count 3.81 X10*6/uL (4.60-5.80); Red Cell Distribution Width 12.4 % (11.0-16.0); White Blood Count 9.6 X10*3/uL (4.8-10.8)
[2023-12-31 14:31] LABS: Troponin-I High Sensitivity < 2.7 ng/L (<3.5-35.0)
[2023-12-31 14:32] LABS: Alanine Aminotransferase 35 U/L (0-40); Albumin Level 4.4 g/dL (3.5-5.0); Alkaline Phosphatase 74 U/L (39-117); Anion Gap 8 (12-20); Aspartate Amino Transferase 38 U/L (5-37); Bilirubin Direct 0.1 mg/dL (0.0-0.5); Bilirubin Total 0.4 mg/dL (0.0-1.0); Blood Urea Nitrogen 17 mg/dL (9-16); Calcium 9.2 mg/dL (8.4-10.2); Carbon Dioxide 27 mmol/L (22-29); Chloride 109 mmol/L (96-108); Creatinine Clr Calc Pharmacy 79.7; Estimated Glomerular Filt Rate > 60; Ethanol < 10 mg/dL; Glucose Random 98 mg/dL (60-115); Potassium 3.8 mmol/L (3.3-5.1); Sodium 140 mmol/L (135-145); Total Protein 7.1 g/dL (6.5-8.0)
[2023-12-31 14:45] LABS: TSH reflex Free T4 0.65 uIU/mL (0.32-4.0)
[2023-12-31 15:09] VITALS: BP 127/71; PULSE 69; RESP 18; TEMP 37.2; O2SAT 99
[2023-12-31] MEDS: LORazepam 1 MG TABLET 2 MG PO (15:27)
[2023-12-31 15:31] LABS: Appearance Urine Clear; Color Urine Yellow; Glucose Urine UA Negative (Negative); Leukocyte Esterase Urine Negative (Negative); Nitrite Urine Negative (Negative); PH 7.5 (5.0-9.0); Specific Gravity - Urine 1.025 (1.005-1.025); UMIC TRIGGER UA YES; Urine Blood Small (1+) (Negative); Urine Ketones Negative (Negative); Urine Protein Negative (Neg-Trace)
[2023-12-31 15:33] LABS: Bacteria Urine None Seen (None Seen); Hyaline Casts Urine 0-2 /LPF (0-2); Squamous Epithelial Cell Urine 0-2 /HPF (0-2); WBC Urine 0-5 /HPF (0-5)
[2023-12-31 18:09] VITALS: BP 127/71; PULSE 69; RESP 18; TEMP 37.2; O2SAT 99
--- NOTE | 2023-12-31 19:48 | MHC.CARE ---
CARE Team eval complete. Pt will D/C home with a referral with [facility] follow-up for the next 3 days (faxed and activated with Solange at 19:50). Safety plan created and discussed with Pt and Pt's ; both verbalized undertsanding and has no further questions or concerns.
== END 2023-12-31 18:11 | disposition home or self-care (01) ==
PROVIDERS: Physician Assistant Medical; Emergency Provider Emergency Medicine Emergency Medical Services; PCP Internal Medicine
DX: F30.9 Manic episode, unspecified (principal); G47.00 Insomnia, unspecified; E78.2 Mixed hyperlipidemia; F17.210 Nicotine dependence, cigarettes, uncomplicated; F12.90 Cannabis use, unspecified, uncomplicated; Z79.899 Other long term (current) drug therapy
CPT/HCPCS: 36415; 80048; 80076; 80307; 81001; 84443; 84484; 85025; 93005; 99284; S9485

== ENCOUNTER → 2023-12-31 13:41 | Outpatient (BNV) | payer BC, SELFPAY | PROVIDERS: Emergency Provider Emergency Medicine Emergency Medical Services; PCP Internal Medicine; Visit Provider Internal Medicine Cardiovascular Disease | DX: F41.9 Anxiety disorder, unspecified (principal); G47.00 Insomnia, unspecified | CPT/HCPCS: 93010 ==

== ENCOUNTER 2024-01-16 08:27 | Outpatient (AMB) | payer BC, SELFPAY ==
[2024-01-16 08:38] VITALS: BP 108/68; PULSE 72; O2SAT 98; BMI 24.6
--- NOTE | 2024-01-16 08:38 | A.OFFPC_ITS ---
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 Allergies No Known Allergies [No Known Allergies*] Allergy (Verified 01/16/24 09:32) Medication List - Last Reconciled 01/16/24 by Timmy Ventura MD aripiprazole (Abilify) 10 mg PO BEDTIME 30 days bisacodyl (Dulcolax (bisacodyl)) 10 mg (2 x 5 mg) PO ONCE 1 day cyclobenzaprine 10 mg PO BEDTIME PRN docusate sodium 100 mg PO BEDTIME ketorolac 10 mg PO TID PRN 5 days loratadine 10 mg PO DAILY PRN 90 days polyethylene glycol 3350 (Miralax) 238 grams PO ONCE Tobacco use date assessed: 01/16/24 HPI follow up/ FMLA form HPI Details Patient comes in today for his HDF follow up visit He reportedly went to the ER a couple of weeks ago on 12/31/23 for further evaluation as he could not go to sleep after supposedly drinking a lot (about 20 to 30 cans) of Red Bull a few days ago - states that he was drinking Red Bull to help him stay awake as 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 at [employer] Workups done in the ER all came back normal He was evaluated by the Care team and was determined to be manic but was not a danger to himself or to the public He was subsequently discharged home and instructed to follow-up with his PCP [facility] He reports feeling hyper over the past couple of weeks now and states that lately, he has barely been able to get any sleep at night Feels that his brain is not able to shut down Patient states that he has NO Hx of depression or bipolar disorder States that other than not being able to sleep, he feels okay He denies any headaches or dizziness Denies any chest pains, no shortness of breath No nausea / vomiting, no abdominal pain No change in bowel habits noted PFSH Medical History Overweight (BMI 25.0-29.9) Smoker Mixed hyperlipidemia Surgical History No history of previous surgery Family History Mother No problems noted. Father HTN (hypertension) Social History Housing: House Alcohol intake: never Patient Tobacco Use Status: Current everyday Tobacco user Cigarettes Per Day: 5 e-Cigarette/Vaping Use: Never Used Second Hand Smoke Exposure: Yes Substance Use Type: Marijuana service: No Current occupational status: employed Cognitive needs: No Hearing needs: No Vision needs: No Questionnaire PHQ-9 Over the last 2 weeks, how often have you been bothered by any of the following problems? 1. Little interest or pleasure in doing things: not at all 2. Feeling down, depressed, or hopeless: not at all 3. Trouble falling or staying asleep, or sleeping too much: not at all 4. Feeling tired or having little energy: not at all 5. Poor appetite or overeating: not at all 6. Feeling bad about yourself - or that you are a failure or have let yourself or your family down: not at all 7. Trouble concentrating on things, such as reading the newspaper or watching te levision: not at all 8. Moving or speaking so slowly that other people could have noticed. Or the opposite - being so fidgety or restless that you have been moving around a lot more than usual: not at all 9. Thoughts that you would be better off or of hurting yourself in some way: not at all Total score: 0 Depression Screening Interpretation: Negative Depression Screening Done: Yes 02288 - PHQ-9 Billing: Yes Source: Developed by Drs. Jj Barriga, Rocio Castro, Angelo Barrow and colleagues, with an educational génesis from [employer]. Thrive Questionnaire Date Thrive assessed: 01/16/24 I am a: Patient What is your living situation today?: I have a steady place to live Within the past 12 months, did the food you bought not last and you didn't have the money to get more?: Never true Within the past 12 months, did you worry whether your food would run out before you got money to buy more?: Never true Do you have trouble paying for medicines?: No Do you have trouble getting transportation to medical appointments?: No Do you have trouble paying your heating and electricity bill?: No Do you have trouble taking care of your child, family member or friend?: No Do you have trouble with day-to-day activities such as bathing, preparing meals, shopping, managing finances, etc.?: No Are you currently unemployed and looking for a job?: No Are you interested in more education?: No Currently or been in a relationship where the following occur: no concerns rep orted THRIVE Score: 0 AUDIT C Alcohol Use Questionnaire (AUDIT-C) 1. How often do you have a drink containing alcohol?: Never 3. How often do you have six or more drinks on one occasion?: Never Total Score: 0 Score Reviewed/Action Taken: Yes EVANS-7 AMB Questionnaire EVANS-7 Date EVANS - 7 assessed: 01/16/24 Source: Developed by Drs. Jj Barriga, Rocio Castro, Angelo Barrow and colleagues, with an educational génesis from [employer]. Review of Systems Const Denies chills, Reports difficulty sleeping, Denies fatigue, Denies fever(s) and Denies headache(s) ENT Denies dysphagia, Denies dizziness, Denies otalgia, Denies headache(s), Denies neck pain, Denies odynophagia and Denies sore throat Card Denies chest pain, Denies rapid heart rate, Denies irregular heart rhythm, Denies palpitations and Denies dyspnea Resp Denies chest congestion, Denies cough, Denies dyspnea and Denies wheezing GI Denies abdominal pain, Denies constipation, Denies dysphagia, Denies heartburn, Denies diarrhea, Denies nausea, Denies odynophagia and Denies vomiting Denies hematuria, Denies difficulty urinating, Denies dysuria and Denies urinary frequency Musc Denies back pain, Denies arthralgias and Denies neck pain Neuro Denies dizziness, Denies headache(s) and Denies paresthesias Psych Denies anxiety and Denies depression Endo Denies fatigue and Denies palpitations Aller/Immun Denies wheezing Physical exam (Primary Care) Vital Signs: Last Vital Signs Pulse 72 01/16/24 08:38 BP 108/68 01/16/24 08:38 Pulse Ox 98 01/16/24 08:38 Oxygen Delivery Method Room Air 01/16/24 08:38 BMI result Body Mass Index 24.6 Tobacco/Smoking Status: Tobacco use Status Tobacco use date assessed 01/16/24 01/16/24 08:45 Patient Tobacco Use Status Current everyday Tobacco 01/16/24 08:45 e-Cigarette/Vaping Use Never Used 01/16/24 08:45 PHQ-9: PHQ-9 Score PHQ-9: Total score 0 01/16/24 09:31 Depression Screening Interpretation: Negative Thrive Assessment: Date of Thrive Assessment Date Thrive assessed 01/16/24 01/16/24 08:45 Currently or been in a relationship where the following occur: no concerns reported Const General: no acute distress and alert Orientation/consciousness: patient oriented x3 HENMT Ears: TM's normal bilaterally and EAC's normal Throat: Yes posterior oropharynx normal and Yes tonsils normal (no TP congestion) Neck Neck: Yes no lymphadenopathy and Yes supple Thyroid: Thyroid normal Resp Auscultation: clear to auscultation bilaterally, no rales and no wheezes Cardio Rate: regular rate Rhythm: regular rhythm Heart sounds: no murmurs GI Palpation (GI): Soft to palpation and nontender Auscultation: normal bowel sounds General: Yes no CVA tenderness Back/Spine/Pelvis Back: no CVA tenderness Thoracic/Lumbar Spine: thoracic and lumbar spine normal to inspection Skin Rashes: rashes noted (scattered patchy erythematous papular lesions/rash) Neuro General: patient oriented x3, no focal motor deficits and CN's II-XI intact bilaterally Cognition (Neuro): normal cognition Extrem General: Yes no clubbing, cyanosis or edema Assessment and Plan Assessment & Plan (1) Gosia: Code(s): F30.9 - Manic episode, unspecified Plan: Will start patient for now on Aripiprazole 10 mg Q HS Will refer him to psychiatry [facility] for further evaluation and management Plan Follow up in 6 months Orders: Referrals Psychiatry Referral F30.9 - Manic episode, unspecified Medications: New aripiprazole (Abilify) 10 mg PO BEDTIME 30 days 30 tabs 1RF Coding Level of Care Code Est Pt Level 3 (01038) Diagnoses Gosia F30.9
== END 2024-01-16 09:44 | disposition home or self-care (01) ==
PROVIDERS: PCP Internal Medicine; Visit Provider Internal Medicine
DX: F30.9 Manic episode, unspecified (principal)
CPT/HCPCS: 99213

== ENCOUNTER 2024-02-12 06:12 | Emergency (ER) | payer MEDICAID, SELFPAY ==
[2024-02-12 06:32] VITALS: BP 120/74; PULSE 83; RESP 18; TEMP 37; O2SAT 99; BMI 24.0
== END 2024-02-12 09:22 | disposition left against medical advice (07) ==
PROVIDERS: Emergency Provider Emergency Medicine; PCP Internal Medicine
DX: M54.2 Cervicalgia (principal); Z53.21 Procedure and treatment not carried out due to patient leaving prior to being seen by health care provider
CPT/HCPCS: 99281

== ENCOUNTER 2024-02-16 23:37 | Emergency (ER) | payer MEDICAID, SELFPAY ==
[2024-02-17 00:13] VITALS: BP 119/75; PULSE 78; RESP 18; TEMP 36.6; O2SAT 100; BMI 25.5
--- NOTE | 2024-02-17 02:46 | PC.NURSE ---
this rn noted pt to no longer be in stretcher.
--- NOTE | 2024-02-17 02:49 | MHC.EDTECH ---
Addendum entered by Madeleine Tomas 02/17/24 02:52: RN was made aware Original Note: Patient came in from the waiting room,ice pack given per request,patients girlfriend got in the stretcher with patient and layed down this tech told her that is not allowed and gave patient a chair to sit in, patient got upset and stated he is not waiting around and walked out
--- NOTE | 2024-02-17 02:49 | PC.NURSE ---
per Madeleine sanchez, pt significant other had been laying in bed, pt told that this is not allowed, pt noted to have got up and leave. this RN notified after pt left.
== END 2024-02-17 02:56 | disposition left against medical advice (07) ==
PROVIDERS: Emergency Provider Emergency Medicine; PCP Internal Medicine
DX: M54.2 Cervicalgia (principal)
CPT/HCPCS: 99281; 99282

== ENCOUNTER 2024-02-21 12:20 | Emergency (ER) | payer MEDICAID, SELFPAY ==
--- NOTE | ~2024-02-21 | CT_ITS ---
EXAMINATION: CT CERVICAL SPINE WITHOUT CONTRAST CLINICAL INFORMATION: Neck pain radiating down left arm COMPARISON: None available. TECHNIQUE: Axial images through the cervical spine without contrast. Sagittal and coronal reconstructions. This CT examination was performed using dose optimization techniques as appropriate, variously including the following: *Automated exposure control *Adjustment of mA and/or kV according to patient size (this includes techniques or standardized protocols for targeted exams where dose is matched to indication/reason for exam; i.e. extremities or head) *Use of iterative reconstruction technique DLP: 424 mGy-cm FINDINGS: There is curvature of the lower cervical and upper thoracic spine to the right. Bone alignment is otherwise normal. No fracture or dislocation. There is mild degenerative spondylosis at C4-C5 and C5-C6. There is mild disc space narrowing at C5-C6. No disc herniation protrusion or bulge is seen at C2-C3 and C3-C4 and C4-C5. At C5-C6 there is disc osteophyte complex and mild to moderate secondary bilateral neuroforaminal narrowing. At C6-C7 there is diffuse disc bulge. No spinal stenosis or neuroforaminal narrowing. No disc herniation protrusion or bulge seen at C7-T1. Prevertebral soft tissues are normal. Lung apices are are clear. CT/CT cervical spine wo IV con IMPRESSION: Degenerative changes, greatest at C5-C6. Fleischner guidelines were followed.
[2024-02-21 12:41] VITALS: BP 123/60; PULSE 76; RESP 18; TEMP 36.9; O2SAT 99; BMI 24.3
--- NOTE | 2024-02-21 12:43 | ED.GENADULT ---
HPI - General Adult General Chief complaint: Behavioral Concerns Stated complaint: Pain All Over Time Seen by Provider: 02/21/24 13:20 Source: patient and RN notes reviewed Mode of arrival: ambulatory History of Present Illness ED Provider: pippa MEDINA narrative: Patient is a 48-year-old male presenting to the emergency department with complaint of left lateral neck pain radiating down shoulder and down left arm for the past 3 weeks. Denies any fall or other precipitating trauma. Does note that he was struck on the back of the neck with a baseball 2-3 years ago and never had evaluation after that injury. He reports occasional tingling to arm. Has taken Tylenol and ibuprofen at home with little relief. Has also tried massaging the area with oil. He is stating this is his only complaint. MD complaint: neck and arm pain Onset (ago): week(s) Location: neck, left and upper extremity Radiation: extremity Severity: severe Quality: aching Pain Consistency: constant Relieving factors: none Associated symptoms: denies other symptoms Treatments prior to arrival: NSAID and other Related Data Previous Rx's ?Medication ?Instructions ?Recorded loratadine 10 mg tablet 10 mg PO DAILY PRN allergy 01/23/23 symptoms 90 days #90 tabs bisacodyl 5 mg tablet,delayed 10 mg (2 x 5 mg) PO ONCE 1 day #2 04/17/23 release (Dulcolax (bisacodyl)) tabs docusate sodium 100 mg capsule 100 mg PO BEDTIME #90 caps 04/17/23 polyethylene glycol 3350 17 238 g PO ONCE #238 grams 04/17/23 gram/dose oral powder (Miralax) cyclobenzaprine 10 mg tablet 10 mg PO BEDTIME PRN muscle spasm 12/28/23 #7 tabs ketorolac 10 mg tablet 10 mg PO TID PRN pain 5 days #15 12/28/23 tabs aripiprazole 10 mg tablet (Abilify) 10 mg PO BEDTIME 30 days #30 tabs 01/16/24 cyclobenzaprine 5 mg tablet 5 mg PO Q8H #7 tabs 02/21/24 lidocaine 5 % topical patch 1 patch topical DAILY #15 ea 02/21/24 (Lidoderm) naproxen 500 mg tablet 500 mg PO Q8-12H PRN pain (scale 06/14/24 score 4-6) #20 tabs Allergies Allergy/AdvReac Type Severity Reaction Status Date / Time No Known Allergies Allergy Verified 02/21/24 12:46 [No Known Allergies*] Review of Systems Review of Systems: As per HPI. Yes all other systems are reviewed and are negative Constitutional: Constitutional: Reports as per HPI [facility] Past Medical History Medical History Overweight (BMI 25.0-29.9) Smoker Mixed hyperlipidemia Surgical History No history of previous surgery Family History Family History Mother No problems noted. Father HTN (hypertension) Social History Social History Housing: House Alcohol intake: never Patient Tobacco Use Status: Current everyday Tobacco user Cigarettes Per Day: 5 e-Cigarette/Vaping Use: Never Used Second Hand Smoke Exposure: Yes Substance Use Type: Marijuana Advance Directives: No Advance Directives Information Provided: Yes Do you have a plan to hurt others: No Plan service: No Current occupational status: employed Cognitive needs: No Hearing needs: No Vision needs: No Physical Exam ED Vital Signs: Vital Signs - 24 hr 02/21/24 12:41 02/21/24 15:32 02/21/24 18:54 Temperature 98.5 F 98.9 F 98.0 F Pulse Rate 76 68 76 Respiratory Rate 18 16 18 Blood Pressure 123/60 130/68 126/74 Pulse Oximetry 99 97 98 Oxygen Delivery Method Room Air Room Air Room Air BMI result Body Mass Index 24.3 Vital signs have been reviewed and appear to be correct. Blood pressure normal. Heart rate normal. Respiratory rate normal. Temperature normal. Oxygen saturation normal. Const General: cooperative, healthy appearing and no acute distress Orientation/consciousness: oriented to person, oriented to place, oriented to time and patient oriented x3 Limitations: no limitations HENMT Head: Yes normocephalic and Yes atraumatic Ears: external ears normal General nose exam: Normal external nose present Face and sinus: Yes face symmetric Mouth: oropharynx normal and moist mucous membranes Throat: Yes uvula midline Eyes Pupils: Equal, round and reactive pupils present Neck Neck: Yes normal visual inspection and Yes supple Resp Effort & Inspection: normal respiratory effort and able to speak in complete sentences Auscultation: clear to auscultation bilaterally Cardio Rate: regular rate Rhythm: regular rhythm Heart sounds: S1 normal heart sound present and S2 normal heart sound present GI Palpation (GI): Soft to palpation and nontender Auscultation: normoactive bowel sounds General: Yes no CVA tenderness Back/Spine/Pelvis Back: no CVA tenderness Cervical Spine: normal cervical lordosis, cervical ROM normal, cervical muscular tenderness (left lateral), pain with cervical ROM, No Cervical spine tenderness and No step off deformity Skin General skin exam: elasticity normal and turgor normal Neuro General: oriented to person, oriented to place, oriented to time, patient oriented x3, moves all extremities, no focal motor deficits and CN's II-XI intact bilaterally Cranial nerves: Yes Equal, round and reactive pupils present Cognition (Neuro): normal cognition Extrem General: Yes full ROM, Yes no pedal edema and Yes no calf tenderness Left upper extremity: shoulder/upper arm Details: inspection abnormal, tenderness (over trapezius) and normal ROM and hand Details: vascular exam Details: radial pulse present and normal ROM of fingers Psych Mental Status: mental status grossly normal Speech and movement: Normal speech and movement present Affect: normal affect Attitude: cooperative Thought process: Normal thought process present Thought content: suicidality, no hallucinations and No Depressive thoughts present Insight: Good insight present (Psych) Judgement: Good judgement present (Psych) Course Course Course Narrative: This is an RME performed by Jemal Marcial CNP: Additional HPI, ROS, PE not included below will be deferred to primary provider. Patient is a 48-year-old male who presents to the emergency department for evaluation parts a lot of pain, from his left neck that radiates down his left arm, and L anterior chest pain. Reports this has been ongoing, constant for 3 weeks. He has taken Tylenol and ibuprofen without any improvement. He arrives in a heavy sweatshirt, and a thick snowsuit appearing overall, without shoes, reporting his shoes are with his in the waiting room, he states that he took them off because he is feeling very hot. 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 Bizarre affect, pressured speech. Denies SI/HI/hallucinations. He arrived to the waiting room yelling that he was in crisis due to his pain. He had a recent ER visit in December of 2023 for acute mary, he was evaluated by care team and ultimately was discharged home with his Plan: Labs, EKG Reevaluation(s) Reevaluation #1: I received patient in sign-out from Mary ROMEO pending CT read, care team eval and disposition. > CBC without leukocytosis or left shift. Chronic anemia with stable H&H of 11.1/31.5. Chemistry without acute electrolyte abnormality requiring intervention. Random glucose 134. Troponin undetectable. I did speak to the care team who has cleared the patient and recommends medical discharge. CT C-spine shows degenerative changes greatest at C5-C6. No other bony abnormality. No fracture. There is diffuse disc bulge at C6/C7 without stenosis or neural foraminal narrowing. Urine negative for infection. Urine tox positive for marijuana, otherwise negative. Ethanol undetectable. EKG showing normal sinus rhythm with a rate of 66 beats per minute, QT 412, QTC 431, no acute ischemic changes or ST elevations. > I discussed all workup results with patient. He continues to deny SI/HI. Reports that he claimed crisis earlier as in crisis from a pain and not as a behavioral concern. He has recieved lidoderm patch and toradol for pain control. He has been cleared by care team. I do feel as though patient is safe for discharge home. Will send naproxen, Flexeril and lidocaine patches to his pharmacy to treat neck/ arm pain. Patient has remained stable throughout ED visit today. Discussed worrisome signs and symptoms and when to return to the ED. All questions answered at this time. Patient is agreeable with disposition and stable for discharge. - Katlin BOTELLO Time: 19:16 Medications Administered Discontinued Medications Generic Name Dose Route Start Last Admin Trade Name Freq PRN Reason Stop Dose Admin Ketorolac Tromethamine 30 mg 02/21/24 18:21 02/21/24 18:48 Ketorolac Tromethamine 30 Mg/Ml Vial IM 02/21/24 18:22 30 mg ONCE ONE Administration Lidocaine 1 patch 02/21/24 18:21 02/21/24 18:49 Lidocaine 4 % Patch Adh..Patch TRANSDERMA 02/21/24 18:22 1 patch ONCE ONE Administration Protocol Medical Decision Making Medical Decision Making [facility] Narrative: Patient is a 48-year-old male presenting to the emergency department with complaint of left lateral neck pain radiating down shoulder and down left arm for the past 3 weeks. On exam patient is awake, A+Ox3, VS WNL, afebrile, normal neurological exam without focal deficits, physical exam findings as above. Given reported symptoms and physical exam findings, initial differential includes cervical muscle strain, cervical radiculopathy. Per medical charge entry specialist, dining room busser, and PIT provider patient displayed bizarre behavior and presentation on arrival, and requested crisis evaluation. Personally feel as though patient was upset about his pain level in the waiting room but will order CARE team evaluation. Labs unremarkable. Urine drug screen positive for THC. Patient signed out to AYAN Dalal pending CT C-spine, then CARE team eval. Differential Diagnosis Differential Diagnoses: The differential diagnosis associated with the presentation includes as per [facility] Lab Data [facility] Lab Attestation statement: I reviewed the patient's lab results. as per [facility] 02/21/24 14:16 02/21/24 14:16 Labs: Lab Results 02/21/24 02/21/24 Range/Units 14:03 14:16 WBC 9.7 (4.8-10.8) X10*3/uL RBC 3.44 L (4.60-5.80) X10*6/uL Hgb 11.1 L (14.0-18.0) g/dl Hct 31.5 L (42.0-52.0) % MCV 91.6 (80.0-98.0) fL MCH 32.3 (27.0-33.0) pg MCHC 35.2 (31.0-36.0) g/dl RDW 12.9 (11.0-16.0) % Plt Count 305 (160-400) X10*3/uL MPV 9.0 L (9.4-12.4) fL Immature Gran % (Auto) 0.4 (0.0-0.4) % Neut % (Auto) 65.8 (45-73) % Lymph % (Auto) 24.6 (20-40) % [place] % (Auto) 6.7 (2-11) % Eos % (Auto) 2.0 (0-4) % Baso % (Auto) 0.5 (0-2) % Lymph # (Auto) 2.4 (1.2-4.9) X10*3/uL [place] # (Auto) 0.7 (0.1-1.2) X10*3/uL Eos # (Auto) 0.2 (0.0-0.4) X10*3/uL Baso # (Auto) 0.1 (0.0-0.2) X10*3/uL Abs Immat Gran (auto) 0.04 H (0.00-0.03) X10*3/uL Absolute Neuts (auto) 6.4 (2.0-8.3) x10*3/uL Absolute Nucleated RBC 0.000 (0.0-0.012) X10*3/uL Nucleated RBC % (auto) 0.0 (0.0-0.2) /100WBC PT 10.9 L (11.1-13.3) SEC INR 0.9 (0.9-1.1) Sodium 139 (135-145) mmol/L Potassium 3.6 (3.3-5.1) mmol/L Chloride 108 (96-108) mmol/L Carbon Dioxide 26 (22-29) mmol/L Anion Gap 9 L (12-20) BUN 17 H (9-16) mg/dL Creatinine 0.84 (0.5-1.4) mg/dL Estim Creat Clear Calc 106.3 Estimated GFR > 60 Random Glucose 134 H (60-115) mg/dL Calcium 9.0 (8.4-10.2) mg/dL Magnesium 2.0 (1.6-2.6) mg/dL Total Bilirubin 0.2 (0.0-1.0) mg/dL AST 48 H (5-37) U/L ALT 78 H (0-40) U/L Alkaline Phosphatase 73 (39-117) U/L Troponin I High Sens < 2.7 (<3.5-35.0) ng/L Total Protein 6.4 L (6.5-8.0) g/dL Albumin 3.9 (3.5-5.0) g/dL Urine Color Yellow Urine Appearance Clear Urine pH 5.5 (5.0-9.0) Ur Specific [place] 1.020 (1.005-1.025) Urine Protein Negative (Neg-Trace) mg/dL Urine Glucose (UA) Negative (Negative) mg/dL Urine Ketones Negative (Negative) mg/dL Urine Blood Small (1+) H (Negative) Urine Nitrite Negative (Negative) Ur Leukocyte Esterase Negative (Negative) Urine RBC 0-2 (0-2) /HPF Urine WBC 0-5 (0-5) /HPF Ur Squamous Epith Cells 0-2 (0-2) /HPF Urine Bacteria None Seen (None Seen) Hyaline Casts 0-2 (0-2) /LPF Urine Opiates Screen Not Detected (Not Detect) Ur Buprenorphine Scrn Not Detected (Not Detect) ng/mL Ur Oxycodone Screen Not Detected (Not Detect) ng/mL Urine Methadone Screen Not Detected (Not Detect) ng/mL Urine Fentanyl Screen Not Detected (Not Detect) Ur Barbiturates Screen Not Detected (Not Detect) Ur Phencyclidine Scrn Not Detected (Not Detect) Ur Amphetamines Screen Not Detected (Not Detect) U Benzodiazepines Scrn Not Detected (Not Detect) Urine Cocaine Screen Not Detected (Not Detect) U Marijuana (THC) Screen POSITIVE H (Not Detect) Ethyl Alcohol < 10 mg/dL Independent Interpretation I performed an independent interpretation of an: EKG (normal sinus rhythm, rate 66bpm, normal MA interval and QTc) External Record Review External record reviewed: Inpatient record, Office record and Outpatient record Discharge Plan Discharge Clinical Impression: Cervical radiculopathy Patient Disposition: Home, Self-Care Instructions: Neck Pain (ED), Chronic Neck Pain (DC) Additional Instructions: You have been cleared by care team. Your lab work and urine results are reassuring. Your imaging studies today did not show acute fracture. They do show degenerative changes within the neck. Your pain is likely musculoskeletal. Avoid bending, lifting, or twisting. Use ice several times per day for 20 minutes at a time for the next 48 hours and then change to heat. Flexeril is a muscle relaxer. Take this at night as it makes you drowsy. Do not drive, drink alcohol, or operate machinery while taking it. Naproxen is an anti-inflammatory / pain medication. Take with food. Do not take this with other NSAIDs such as ibuprofen or Aleve as this may increase risk of GI bleeding. Lidoderm patches are numbing patches. Apply to painful areas. In addition you may take Tylenol at home. Follow up with your primary care provider as needed If your pain worsens, if you develop new numbness, tingling, weakness, loss of bowel or bladder function call 911 or return to the ER immediately for evaluation. Prescriptions: New cyclobenzaprine 5 mg tablet 5 mg PO Q8H Qty: 7 0RF lidocaine [Lidoderm] 5 % adhesive patch,medicated 1 patch topical DAILY Qty: 15 0RF Rx Instructions: leave on most painful area for up to 12 hrs naproxen 500 mg tablet 500 mg PO Q8-12H PRN (Reason: pain (scale score 4-6)) Qty: 20 0RF No Action cyclobenzaprine 10 mg tablet 10 mg PO BEDTIME PRN (Reason: muscle spasm) Qty: 7 0RF ketorolac 10 mg tablet 10 mg PO TID PRN (Reason: pain) 5 Days Qty: 15 0RF loratadine 10 mg tablet 10 mg PO DAILY PRN (Reason: allergy symptoms) 90 Days Qty: 90 3RF aripiprazole [Abilify] 10 mg tablet 10 mg PO BEDTIME 30 Days Qty: 30 1RF bisacodyl [Dulcolax (bisacodyl)] 5 mg tablet,delayed release (DR/EC) 10 mg PO ONCE 1 Days Qty: 2 0RF Rx Instructions: take 2 tabs at noon the day before your colonoscopy docusate sodium 100 mg capsule 100 mg PO BEDTIME Qty: 90 3RF polyethylene glycol 3350 [Miralax] 17 gram/dose powder 238 g PO ONCE Qty: 238 0RF Rx Instructions: As directed by gastroenterology department at [facility] Referrals: Timmy Ventura MD [Primary Care Provider] - Interventions: ED Discharge Assessment Last Done: 02/21/24 18:54 Discharge Date/Time: 02/21/24 19:04 Print Language: Serbian
--- NOTE | 2024-02-21 12:52 | ECG_ITS ---
Test Reason : LEFT ARM PAIN Blood Pressure : / mmHG Vent. Rate : 066 BPM Atrial Rate : 066 BPM P-R Int : 146 ms QRS Dur : 078 ms QT Int : 412 ms P-R-T Axes : 068 057 055 degrees QTc Int : 431 ms Normal sinus rhythm Normal ECG When compared with ECG of 31-DEC-2023 13:46, No significant change was found Referred By: Haylie Marcial Electronically Signed By:HAILE ALEGRIA
[2024-02-21 14:22] LABS: Appearance Urine Clear; Color Urine Yellow; Glucose Urine UA Negative (Negative); Leukocyte Esterase Urine Negative (Negative); Nitrite Urine Negative (Negative); PH 5.5 (5.0-9.0); UMIC TRIGGER UACC YES; Urine Blood Small (1+) (Negative); Urine Ketones Negative (Negative); Urine Protein Negative (Neg-Trace)
[2024-02-21 14:26] LABS: MANUAL DIFF FLAG NO
[2024-02-21 14:31] LABS: Basophils Absolute Auto 0.1 X10*3/uL (0.0-0.2); Basophils Percent Auto 0.5 % (0-2); Eosinophils Absolute Auto 0.2 X10*3/uL (0.0-0.4); Hematocrit 31.5 % (42.0-52.0); Hemoglobin 11.1 g/dl (14.0-18.0); Imm Gran Abs Auto 0.04 X10*3/uL (0.00-0.03); Imm Gran Pct Auto 0.4 % (0.0-0.4); Lymphocytes Absolute Auto 2.4 X10*3/uL (1.2-4.9); Lymphocytes Percent Auto 24.6 % (20-40); Mean Corpuscular HGB Conc 35.2 g/dl (31.0-36.0); Mean Corpuscular Hemoglobin 32.3 pg (27.0-33.0); Mean Corpuscular Volume 91.6 fL (80.0-98.0); Monocytes Absolute Auto 0.7 X10*3/uL (0.1-1.2); Monocytes Percent Auto 6.7 % (2-11); Neutrophils Absolute Auto 6.4 x10*3/uL (2.0-8.3); Neutrophils Percent Auto 65.8 % (45-73); Platelet Count 305 X10*3/uL (160-400); Red Blood Count 3.44 X10*6/uL (4.60-5.80); Red Cell Distribution Width 12.9 % (11.0-16.0); White Blood Count 9.7 X10*3/uL (4.8-10.8)
[2024-02-21 14:34] LABS: Bacteria Urine None Seen (None Seen); Hyaline Casts Urine 0-2 /LPF (0-2); RBC Urine 0-2 /HPF (0-2); Squamous Epithelial Cell Urine 0-2 /HPF (0-2); WBC Urine 0-5 /HPF (0-5)
[2024-02-21 14:37] LABS: Amphetamine Screen Urine Not Detected (Not Detect); Barbiturates, Urine Not Detected (Not Detect); Benzodiazepines Screen Urine Not Detected (Not Detect); Buprenorphine Scr Not Detected (Not Detect); Cannabinoid Screen Urine POSITIVE (Not Detect); Cocaine Screen Urine Not Detected (Not Detect); Fentanyl, urine Not Detected (Not Detect); Methadone Screen, Urine Not Detected (Not Detect); Opiate Screen Urine Not Detected (Not Detect); Oxycodone Screen Urine Not Detected (Not Detect); Phencyclidine Screen Urine Not Detected (Not Detect)
[2024-02-21 14:39] LABS: INTERNATIONAL NORM RATIO 0.9 (0.9-1.1); Prothrombin Time 10.9 SEC (11.1-13.3)
[2024-02-21 14:45] LABS: Ethanol < 10 mg/dL
[2024-02-21 14:49] LABS: Alanine Aminotransferase 78 U/L (0-40); Albumin Level 3.9 g/dL (3.5-5.0); Alkaline Phosphatase 73 U/L (39-117); Anion Gap 9 (12-20); Aspartate Amino Transferase 48 U/L (5-37); Bilirubin Total 0.2 mg/dL (0.0-1.0); Blood Urea Nitrogen 17 mg/dL (9-16); Carbon Dioxide 26 mmol/L (22-29); Chloride 108 mmol/L (96-108); Creatinine Clr Calc Pharmacy 106.3; Estimated Glomerular Filt Rate > 60; Glucose Random 134 mg/dL (60-115); Potassium 3.6 mmol/L (3.3-5.1); Sodium 139 mmol/L (135-145); Total Protein 6.4 g/dL (6.5-8.0)
[2024-02-21 14:57] LABS: Troponin-I High Sensitivity < 2.7 ng/L (<3.5-35.0)
[2024-02-21 15:32] VITALS: BP 130/68; PULSE 68; RESP 16; TEMP 37.2; O2SAT 97
[2024-02-21] MEDS: Ketorolac Tromethamine 30 MG/ML VIAL IM (18:48)
[2024-02-21] MEDS: Lidocaine 4 % Patch ADH..PATCH 1 PATCH TRANSDERMA (18:49)
[2024-02-21 18:54] VITALS: BP 126/74; PULSE 76; RESP 18; TEMP 36.7; O2SAT 98
== END 2024-02-21 19:04 | disposition home or self-care (01) ==
PROVIDERS: Nurse Practitioner Family; Emergency Provider Emergency Medicine; PCP Internal Medicine
DX: M54.2 Cervicalgia (principal); M79.602 Pain in left arm; R20.2 Paresthesia of skin; Z79.899 Other long term (current) drug therapy
CPT/HCPCS: 36415; 72125; 80053; 80307; 81001; 83735; 84484; 85025; 85610; 93005; 96372; 99284; J1885; S9485

== ENCOUNTER → 2024-02-21 12:52 | Outpatient (BNV) | payer MEDICAID, SELFPAY | PROVIDERS: Emergency Provider Emergency Medicine; PCP Internal Medicine; Visit Provider Internal Medicine | DX: M79.602 Pain in left arm (principal) | CPT/HCPCS: 93010 ==

== ENCOUNTER 2024-02-23 04:30 | Emergency (ER) | payer MEDICAID, SELFPAY ==
[2024-02-23 04:43] VITALS: BP 119/54; PULSE 73; RESP 18; TEMP 36.9; O2SAT 96; BMI 27.5
--- NOTE | 2024-02-23 06:37 | ED_ITS ---
HPI - Extremity Problem General Chief complaint: Extremity Injury, Upper Stated complaint: L arm pain Time Seen by Provider: 02/23/24 06:36 Source: patient Mode of arrival: ambulatory Limitations: no limitations History of Present Illness ED Provider: Michael Lyon PA-C HPI Narrative: This is a 48 yo male pmh of mixed hyperlipidemia, tobacco use, asthma, allergic dermatitis, syphilis presenting with complaint of a bump in his left armpit x 1 month which comes and goes. Not present at this time he states, comes and goes and varries in size. Patient describes the bump as painful, about a 4/10, does not itch and does not have any drainage. Denies recent illness, sick contacts, or travels. States he has had recent weight loss but attributes it to changing his eating habits and dieting . Denies fever, chills, chest pain, SOB, numbness, tingling, weakness, night sweats, n/v/,d, headache. Unsure of a family history of cancer but sates it is a possibility direct family members do not have cancer. Related Data Previous Rx's ?Medication ?Instructions ?Recorded loratadine 10 mg tablet 10 mg PO DAILY PRN allergy 01/23/23 symptoms 90 days #90 tabs bisacodyl 5 mg tablet,delayed 10 mg (2 x 5 mg) PO ONCE 1 day #2 04/17/23 release (Dulcolax (bisacodyl)) tabs docusate sodium 100 mg capsule 100 mg PO BEDTIME #90 caps 04/17/23 polyethylene glycol 3350 17 238 g PO ONCE #238 grams 04/17/23 gram/dose oral powder (Miralax) cyclobenzaprine 10 mg tablet 10 mg PO BEDTIME PRN muscle spasm 12/28/23 #7 tabs ketorolac 10 mg tablet 10 mg PO TID PRN pain 5 days #15 12/28/23 tabs aripiprazole 10 mg tablet (Abilify) 10 mg PO BEDTIME 30 days #30 tabs 01/16/24 cyclobenzaprine 5 mg tablet 5 mg PO Q8H #7 tabs 02/21/24 lidocaine 5 % topical patch 1 patch topical DAILY #15 ea 02/21/24 (Lidoderm) naproxen 500 mg tablet 500 mg PO Q8-12H PRN pain (scale 02/21/24 score 4-6) #20 tabs naproxen 500 mg tablet 500 mg PO BID PRN pain #14 tabs 02/23/24 Allergies Allergy/AdvReac Type Severity Reaction Status Date / Time No Known Allergies Allergy Verified 02/23/24 04:47 [No Known Allergies*] Review of Systems 2 Review of Systems: Yes all other systems are reviewed and are negative PMFSH Past Medical History Attestation statement: The following information was validated with the patient. Source: old records reviewed and nursing notes reviewed Medical History Overweight (BMI 25.0-29.9) Smoker Mixed hyperlipidemia Surgical History No history of previous surgery Family History Family History Mother No problems noted. Father HTN (hypertension) Social History Social History Housing: House Alcohol intake: never Patient Tobacco Use Status: Current everyday Tobacco user Cigarettes Per Day: 5 Smoked in Last 30 Days: Yes e-Cigarette/Vaping Use: Never Used Second Hand Smoke Exposure: Yes Use of substances other than those prescribed or required for medical reasons: Yes Substance Use Type: Marijuana Advance Directives: No Advance Directives Information Provided: Yes Do you have a plan to hurt others: No Plan service: No Current occupational status: employed Cognitive needs: No Hearing needs: No Vision needs: No Physical Exam 2 Vital Signs: Vital Signs: Last Vital Signs Temp 97.7 F 02/23/24 08:43 Pulse 56 02/23/24 08:43 Resp 20 02/23/24 08:43 BP 102/60 02/23/24 08:43 Pulse Ox 100 02/23/24 08:43 O2 Del Method Room Air 02/23/24 08:43 BMI result Body Mass Index 27.5 vss. Appearance: Alert.? Oriented X3.? No acute distress.? Head: Normocephalic, atraumatic, no step-offs or deformities Eyes: Pupils equal, round and reactive to light.? Neck: Normal inspection.? Neck supple.? CVS: Normal heart rate and rhythm.? Pulses normal.? Respiratory: No respiratory distress.? Breath sounds normal.? Abdomen: Soft and nontender.? Skin: Skin warm and dry.? Normal skin color.? Normal skin turgor.? Bump in left axilla not visualized at time of exam. Patient states it comes and goes. No redness, drainage, warmth, or signs of infection to axilla. Extremities: No lower extremity edema.? No calf ttp. 5/5 strength to bilateral upper and lower extremities Neuro: Oriented X 3.? No motor deficit.? No sensory deficit. CN 2-12 intact Course Reevaluation(s) Reevaluation #1: CBC appears to be around patient's baseline. Chemistry unremarkable. Again at patient's baseline. Patient to follow-up with PCP. Explained to him if this does not go away he may need a biopsy. To rule out malignancy. Educated patient on diagnosis and treatment plan, answered all question, patient verbalizes understanding. At this time patient will be discharged home, advised to return with new or worsening symptoms. Educated on worrisome signs and symptoms and when to return. At this time I feel comfortable discharge home. Time: 08:57 Medical Decision Making Medical Decision Making [facility] Narrative: 0640 48 yo male presents with complaint of atraumatic bump to his left axilla x 1 month which comes and goes and is painful (4/10). PE: Skin: Skin warm and dry.? Normal skin color.? Normal skin turgor.? Bump in left axilla not visualized at time of exam. Patient states it comes and goes. No redness, drainage, warmth, or signs of infection to axilla. Differential: Enlarged lymph node vs lipoma vs skin nodule. Unlikely malignancy, necrotizing infection, neurovascular compromise, acute threat to limb. No signs of arterial or venous occlusion. Plan: Labs, CRP/ESR Differential Diagnosis Differential Diagnoses: The differential diagnosis associated with the presentation includes Differential: Enlarged lymph node vs lipoma vs skin nodule. Unlikely malignancy, necrotizing infection, neurovascular compromise, acute threat to limb. No signs of arterial or venous occlusion. Admission/Observation Consideration of admission/observation: Escalation of care including admission/observation considered Unlikely Lab Data [facility] Lab Attestation statement: I reviewed the patient's lab results. 02/23/24 08:01 02/23/24 08:01 Labs: Lab Results 06/16/24 Range/Units 08:01 WBC 8.0 (4.8-10.8) X10*3/uL RBC 3.52 L (4.60-5.80) X10*6/uL Hgb 11.5 L (14.0-18.0) g/dl Hct 32.2 L (42.0-52.0) % MCV 91.5 (80.0-98.0) fL MCH 32.7 (27.0-33.0) pg MCHC 35.7 (31.0-36.0) g/dl RDW 12.9 (11.0-16.0) % Plt Count 291 (160-400) X10*3/uL MPV 9.2 L (9.4-12.4) fL Immature Gran % (Auto) 0.3 (0.0-0.4) % Neut % (Auto) 62.3 (45-73) % Lymph % (Auto) 25.1 (20-40) % Taliaferro % (Auto) 9.3 (2-11) % Eos % (Auto) 2.4 (0-4) % Baso % (Auto) 0.6 (0-2) % Lymph # (Auto) 2.0 (1.2-4.9) X10*3/uL Taliaferro # (Auto) 0.7 (0.1-1.2) X10*3/uL Eos # (Auto) 0.2 (0.0-0.4) X10*3/uL Baso # (Auto) 0.1 (0.0-0.2) X10*3/uL Abs Immat Gran (auto) 0.02 (0.00-0.03) X10*3/uL Absolute Neuts (auto) 5.0 (2.0-8.3) x10*3/uL Absolute Nucleated RBC 0.000 (0.0-0.012) X10*3/uL Nucleated RBC % (auto) 0.0 (0.0-0.2) /100WBC Sodium 142 (135-145) mmol/L Potassium 4.0 (3.3-5.1) mmol/L Chloride 112 H (96-108) mmol/L Carbon Dioxide 23 (22-29) mmol/L Anion Gap 11 L (12-20) BUN 16 (9-16) mg/dL Creatinine 0.73 (0.5-1.4) mg/dL Estim Creat Clear Calc 127.9 Estimated GFR > 60 Random Glucose 87 (60-115) mg/dL Calcium 8.4 D (8.4-10.2) mg/dL Total Bilirubin 0.2 (0.0-1.0) mg/dL AST 41 H (5-37) U/L ALT 71 H (0-40) U/L Alkaline Phosphatase 84 (39-117) U/L C-Reactive Protein < 0.04 (< or = 0.50) mg/dL Total Protein 6.1 L (6.5-8.0) g/dL Albumin 3.7 (3.5-5.0) g/dL External Record Review External record reviewed: Outpatient record, Prior outpatient labs and Prior outpatient radiology Chronic Conditions Patient?s care impacted by: Other Asthma, mixed hyperlipidemia, allergic dermatitis Critical Care Time Critical Care Time Critical Care Time: No Discharge Plan Discharge Clinical Impression: Lymphadenopathy Patient Disposition: Home, Self-Care Instructions: Lymphadenopathy (ED) Additional Instructions: Take your medications as prescribed. If you were prescribed antibiotics today, it is important that you take your medication to their entirety, do not skip any doses, do not finish them early. Follow-up with your primary care provider this week. Return to the emergency department with new or worsening symptoms. Such as fevers, chills, chest pain, shortness of breath, nausea, vomiting, dizziness, headache, vision changes, lethargy In case of emergency call 911 If this does not go away, you will have to see your primary care provider and they may have to order a biopsy of this area to make sure it has not malignant or cancerous. Lymph nodes however can be reactive and become enlarged due to stress, illness and many other reasons. Prescriptions: New naproxen 500 mg tablet 500 mg PO BID PRN (Reason: pain) Qty: 14 0RF Rx Instructions: Take with food No Action cyclobenzaprine 10 mg tablet 10 mg PO BEDTIME PRN (Reason: muscle spasm) Qty: 7 0RF ketorolac 10 mg tablet 10 mg PO TID PRN (Reason: pain) 5 Days Qty: 15 0RF cyclobenzaprine 5 mg tablet 5 mg PO Q8H Qty: 7 0RF lidocaine [Lidoderm] 5 % adhesive patch,medicated 1 patch topical DAILY Qty: 15 0RF Rx Instructions: leave on most painful area for up to 12 hrs naproxen 500 mg tablet 500 mg PO Q8-12H PRN (Reason: pain (scale score 4-6)) Qty: 20 0RF loratadine 10 mg tablet 10 mg PO DAILY PRN (Reason: allergy symptoms) 90 Days Qty: 90 3RF aripiprazole [Abilify] 10 mg tablet 10 mg PO BEDTIME 30 Days Qty: 30 1RF bisacodyl [Dulcolax (bisacodyl)] 5 mg tablet,delayed release (DR/EC) 10 mg PO ONCE 1 Days Qty: 2 0RF Rx Instructions: take 2 tabs at noon the day before your colonoscopy docusate sodium 100 mg capsule 100 mg PO BEDTIME Qty: 90 3RF polyethylene glycol 3350 [Miralax] 17 gram/dose powder 238 g PO ONCE Qty: 238 0RF Rx Instructions: As directed by gastroenterology department at [facility] Referrals: Timmy Ventura MD [Primary Care Provider] - 2 days Stand Alone Forms: Work/School Release Interventions: ED Discharge Assessment Last Done: 02/23/24 08:43 Discharge Date/Time: 02/23/24 08:43 Print Language: Nepalese
[2024-02-23 07:52] VITALS: BP 102/60; PULSE 56; RESP 20; TEMP 36.5; O2SAT 100
[2024-02-23 08:07] LABS: MANUAL DIFF FLAG NO
[2024-02-23 08:11] LABS: Basophils Absolute Auto 0.1 X10*3/uL (0.0-0.2); Basophils Percent Auto 0.6 % (0-2); Eosinophils Absolute Auto 0.2 X10*3/uL (0.0-0.4); Eosinophils Percent Auto 2.4 % (0-4); Hematocrit 32.2 % (42.0-52.0); Hemoglobin 11.5 g/dl (14.0-18.0); Imm Gran Abs Auto 0.02 X10*3/uL (0.00-0.03); Imm Gran Pct Auto 0.3 % (0.0-0.4); Lymphocytes Percent Auto 25.1 % (20-40); Mean Corpuscular HGB Conc 35.7 g/dl (31.0-36.0); Mean Corpuscular Hemoglobin 32.7 pg (27.0-33.0); Mean Corpuscular Volume 91.5 fL (80.0-98.0); Mean Platelet Volume 9.2 fL (9.4-12.4); Monocytes Absolute Auto 0.7 X10*3/uL (0.1-1.2); Monocytes Percent Auto 9.3 % (2-11); Neutrophils Percent Auto 62.3 % (45-73); Platelet Count 291 X10*3/uL (160-400); Red Blood Count 3.52 X10*6/uL (4.60-5.80); Red Cell Distribution Width 12.9 % (11.0-16.0)
[2024-02-23 08:29] LABS: Alanine Aminotransferase 71 U/L (0-40); Albumin Level 3.7 g/dL (3.5-5.0); Alkaline Phosphatase 84 U/L (39-117); Anion Gap 11 (12-20); Aspartate Amino Transferase 41 U/L (5-37); Bilirubin Total 0.2 mg/dL (0.0-1.0); Blood Urea Nitrogen 16 mg/dL (9-16); C Reactive Protein < 0.04 mg/dL (< or = 0.50); Calcium 8.4 mg/dL (8.4-10.2); Carbon Dioxide 23 mmol/L (22-29); Chloride 112 mmol/L (96-108); Creatinine Clr Calc Pharmacy 127.9; Estimated Glomerular Filt Rate > 60; Glucose Random 87 mg/dL (60-115); Sodium 142 mmol/L (135-145); Total Protein 6.1 g/dL (6.5-8.0)
[2024-02-23 08:43] VITALS: BP 102/60; PULSE 56; RESP 20; TEMP 36.5; O2SAT 100
[2024-02-23 08:58] LABS: Erythrocyte Sedimentation Rate 3 MM/HR (0-15)
[2024-02-24 03:35] LABS: Syphilis Screen Reactive (Nonreactive)
[2024-02-28 14:37] LABS: RPR Quantitative Non-Reactive (Nonreactive); T.Pallidum Particle Agg Test Reactive (Nonreactive)
== END 2024-02-23 08:43 | disposition home or self-care (01) ==
PROVIDERS: Physician Assistant; Emergency Provider Emergency Medicine Emergency Medical Services; PCP Internal Medicine
DX: R59.0 Localized enlarged lymph nodes (principal)
CPT/HCPCS: 36415; 80053; 85025; 85652; 86140; 86592; 86780; 99283; 99284

== ENCOUNTER 2024-05-11 23:01 | Emergency (ER) | payer MEDICAID, SELFPAY ==
--- NOTE | ~2024-05-11 | XR_ITS ---
EXAMINATION: XR LUMBOSACRAL SPINE CLINICAL INFORMATION: Lower back pain COMPARISON: 12/05/2015 TECHNIQUE: Three views of the lumbosacral spine. FINDINGS: There is anatomic alignment of the lumbar vertebral bodies and posterior elements. Vertebral body heights and intervertebral disc spaces are maintained. No acute fracture is seen. Sacroiliac joints appear intact. XR/XR lumbar spine 2-3V IMPRESSION: No acute findings identified. Electronically signed by: Kris Shankar MD 05/12/2024 01:14 AM EDT
[2024-05-11 23:04] VITALS: BP 105/60; PULSE 72; RESP 18; TEMP 36.8; O2SAT 99; BMI 27.1
--- NOTE | 2024-05-12 00:37 | PC.NURSE ---
pt from waiting room, assume care of pt at this keegan e
--- NOTE | 2024-05-12 00:39 | ED.BACK ---
HPI - Back Pain/Injury General Chief Complaint: Back Pain/Injury Stated Complaint: Low Back Pain Radiating Down Left Leg Time Seen by Provider: 05/12/24 00:33 Source: patient Mode of arrival: ambulatory Limitations: no limitations History of Present Illness ED Provider: Dr. Raissa Felix HPI Narrative: Patient comes to the emergency room complaining of 2 weeks of lateral leg pain. Patient states that he was working out doing several exercises, after work at his started having lateral leg pain. Patient denies any radiation from the back down to his heel, patient states it hurts more with walking, pain only from the top of the hip to the knee along the lateral aspect. Related Data Previous Rx's ?Medication ?Instructions ?Recorded loratadine 10 mg tablet 10 mg PO DAILY PRN allergy 01/23/23 symptoms 90 days #90 tabs bisacodyl 5 mg tablet,delayed 10 mg (2 x 5 mg) PO ONCE 1 day #2 04/17/23 release (Dulcolax (bisacodyl)) tabs docusate sodium 100 mg capsule 100 mg PO BEDTIME #90 caps 04/17/23 polyethylene glycol 3350 17 238 g PO ONCE #238 grams 04/17/23 gram/dose oral powder (Miralax) cyclobenzaprine 10 mg tablet 10 mg PO BEDTIME PRN muscle spasm 12/28/23 #7 tabs ketorolac 10 mg tablet 10 mg PO TID PRN pain 5 days #15 12/28/23 tabs aripiprazole 10 mg tablet (Abilify) 10 mg PO BEDTIME 30 days #30 tabs 01/16/24 cyclobenzaprine 5 mg tablet 5 mg PO Q8H #7 tabs 02/21/24 lidocaine 5 % topical patch 1 patch topical DAILY #15 ea 02/21/24 (Lidoderm) naproxen 500 mg tablet 500 mg PO Q8-12H PRN pain (scale 02/21/24 score 4-6) #20 tabs naproxen 500 mg tablet 500 mg PO BID PRN pain #14 tabs 02/23/24 cyclobenzaprine 10 mg tablet 10 mg PO TID PRN muscle spasm #10 05/12/24 tabs ketorolac 10 mg tablet 10 mg PO BID PRN pain #10 tabs 05/12/24 Allergies Allergy/AdvReac Type Severity Reaction Status Date / Time No Known Allergies Allergy Verified 05/11/24 23:07 [No Known Allergies*] Review of Systems Review of Systems: Constitutional : No Weight loss, No Fever, No Chills, No Night Sweats, No Fatigue, No Malaise ENT/Mouth : No Hearing loss, No Ear Pain, No Nasal Congestion, No Sinus Pain, No Hoarseness, No sore throat, No Rhinorrhea, No Swallowing Difficulty Eyes: No Eye Pain, No Swelling, No Redness, No Foreign Body, No Discharge, No Vision Changes Cardiovascular : No Chest Pain, No SOB, No Dyspnea on Exertion, No Orthopnea, No Edema, No Palpitations Respiratory : No Cough, No Sputum, No Wheezing, No Smoke Exposure, No Dyspnea Gastrointestinal : No Nausea, No Vomiting, No Diarrhea, No Constipation, No abdominal Pain, No Hematochezia, No Melena Genitourinary : no irregular bleeding, No Dysuria, No Urinary Frequency, No Hematuria, No Urinary Incontinence, No Urgency, No Flank Pain, No Urinary Flow Changes, No Hesitancy Musculoskeletal : Pain from the top of the hip down to the lateral aspect of the left knee No joint pain, No Myalgias, No Joint Swelling Skin : No Skin Lesions, No rash Neuro : No Weakness, No Numbness, No Paresthesias, No Loss of Consciousness, No Dizziness, No Headache Psych : No Anxiety/Panic, No Depression, No SI/HI/AH/VH, No Social Issues, Heme/Lymph: No Bruising, No Bleeding,No Lymphadenopathy Endocrine : No Polyuria, No Polydipsia, No Temperature Intolerance [facility] Past Medical History Medical History Overweight (BMI 25.0-29.9) Smoker Mixed hyperlipidemia Surgical History No history of previous surgery Family History Family History Mother No problems noted. Father HTN (hypertension) Social History Social History Housing: House Alcohol intake: never Patient Tobacco Use Status: Current everyday Tobacco user Cigarettes Per Day: 5 e-Cigarette/Vaping Use: Never Used Second Hand Smoke Exposure: Yes Substance Use Type: Marijuana Advance Directives: No Advance Directives Information Provided: No Do you have a plan to hurt others: No Plan service: No Current occupational status: employed Cognitive needs: No Hearing needs: No Vision needs: No Physical Exam Vital Signs: Vital Signs: Last Vital Signs Temp 98.2 F 05/11/24 23:04 Pulse 72 05/11/24 23:04 Resp 18 05/11/24 23:04 BP 105/60 05/11/24 23:04 Pulse Ox 99 05/11/24 23:04 O2 Del Method Room Air 05/11/24 23:04 BMI result Body Mass Index 27.1 Const: Other: Appearance: Alert. Oriented X3. No acute distress. Eyes: Pupils equal, round and reactive to light. ENT: Pharynx normal. Neck: Normal inspection. Neck supple. No lymph nodes noted. No crepitus CVS: Normal heart rate and rhythm. Pulses normal. Normal S1 and S2 Respiratory: No respiratory distress. Breath sounds normal. No Wheezing. No rales Abdomen: Soft and nontender. No rigidity. No distention. Skin: Skin warm and dry. Normal skin color. Normal skin turgor. Back: No pain to palpation over the cervical/thoracic/lumbar : Negative straight leg raise test. Extremities: No lower extremity edema. No Lacerations. No Rash. Patient complaining of pain to palpation along the ITB band on the left Neuro: Oriented X 3. No motor deficit. No sensory deficit. Moving all extremities. No slurred speech. CN 2 through 12 grossly intact Psych: calm, cooperative, normal affect Medical Decision Making Medical Decision Making MDM Narrative: My interpretation of lumbar x-ray: Normal alignment -discussed with the patient that after 2 weeks of pain, he will likely need physical therapy. -patient was given IM Toradol and Flexeril. Patient likely has IT band syndrome/pain Discharge Plan Discharge Clinical Impression: Iliotibial band syndrome Patient Disposition: Home, Self-Care Instructions: Iliotibial Band Syndrome (ED) Additional Instructions: Please follow-up with your primary care physician tomorrow. If you have any worsening or new symptoms, please return to the emergency room or call 911 Prescriptions: New ketorolac 10 mg tablet 10 mg PO BID PRN (Reason: pain) Qty: 10 0RF Rx Instructions: Do not use this medication with NSAIDs, only Tylenol if needed cyclobenzaprine 10 mg tablet 10 mg PO TID PRN (Reason: muscle spasm) Qty: 10 0RF Rx Instructions: Do not drive or operate machinery after taking this medications, it may make you feel drowsy No Action naproxen 500 mg tablet 500 mg PO BID PRN (Reason: pain) Qty: 14 0RF Rx Instructions: Take with food cyclobenzaprine 10 mg tablet 10 mg PO BEDTIME PRN (Reason: muscle spasm) Qty: 7 0RF ketorolac 10 mg tablet 10 mg PO TID PRN (Reason: pain) 5 Days Qty: 15 0RF cyclobenzaprine 5 mg tablet 5 mg PO Q8H Qty: 7 0RF lidocaine [Lidoderm] 5 % adhesive patch,medicated 1 patch topical DAILY Qty: 15 0RF Rx Instructions: leave on most painful area for up to 12 hrs naproxen 500 mg tablet 500 mg PO Q8-12H PRN (Reason: pain (scale score 4-6)) Qty: 20 0RF loratadine 10 mg tablet 10 mg PO DAILY PRN (Reason: allergy symptoms) 90 Days Qty: 90 3RF aripiprazole [Abilify] 10 mg tablet 10 mg PO BEDTIME 30 Days Qty: 30 1RF bisacodyl [Dulcolax (bisacodyl)] 5 mg tablet,delayed release (DR/EC) 10 mg PO ONCE 1 Days Qty: 2 0RF Rx Instructions: take 2 tabs at noon the day before your colonoscopy docusate sodium 100 mg capsule 100 mg PO BEDTIME Qty: 90 3RF polyethylene glycol 3350 [Miralax] 17 gram/dose powder 238 g PO ONCE Qty: 238 0RF Rx Instructions: As directed by gastroenterology department at [facility] Print Language: Indonesian
[2024-05-12] MEDS: Cyclobenzaprine HCl 10 MG TABLET PO (00:49)
[2024-05-12] MEDS: Ketorolac Tromethamine 60 MG/2 ML VIAL IM (00:49)
[2024-05-12 01:12] VITALS: BP 105/60; PULSE 72; RESP 18; TEMP 36.8
== END 2024-05-12 01:13 | disposition home or self-care (01) ==
PROVIDERS: Emergency Provider Emergency Medicine
DX: M76.30 Iliotibial band syndrome, unspecified leg (principal); M54.50 Low back pain, unspecified; M79.606 Pain in leg, unspecified
CPT/HCPCS: 72100; 96372; 99284; J1885

== ENCOUNTER 2024-08-27 12:53 | Outpatient (AMB) | payer MEDICAID, SELFPAY ==
--- NOTE | 2024-08-27 12:55 | MHC.OFFVIS ---
Vital Signs 08/27/24 13:02 Height 5 ft 8 in Weight 181 lb 8 oz BMI 27.6 BP 113/65 Blood Pressure Location Lt brachial Position Sitting Pulse 62 Intake Visit Reasons: mass left Axila Intake Note: Patient is seen in office for evaluation of a mass of the left axilla. Patient c/o: went to [facility] and was evaluated per pt nothing was done, denies discharge, redness, very painful, taking pain meds daily Naproxen [facility] GS:03/25/24 (u/s) [facility] ED:02/27/24 [employer] Cutting [employer] Required: No Accompanied by: Self / Same As Patient Allergies No Known Allergies [No Known Allergies*] Allergy (Verified 08/27/24 13:01) HPI Comments Details: 48-year-old male patient presenting with a painful mass in the left axilla. This has been present for approximately 5-6 months in his could now causing pain extending down his left arm. He also reports pain in the left shoulder more towards the back which seems to increase when he raises his arm above the shoulder. He is unaware of any injury or other inciting event to cause his symptoms. He recently underwent evaluation with ultrasound which revealed no suspicious findings in the left axilla. [facility] Medical History Overweight (BMI 25.0-29.9) Smoker Mixed hyperlipidemia Surgical History No history of previous surgery Family History Mother No problems noted. Father HTN (hypertension) Social History Housing: House Alcohol intake: never Patient Tobacco Use Status: Current everyday Tobacco user Cigarettes Per Day: 5 e-Cigarette/Vaping Use: Never Used Second Hand Smoke Exposure: Yes Substance Use Type: Marijuana service: No Current occupational status: employed Cognitive needs: No Hearing needs: No Vision needs: No Review of Systems Const All systems reviewed & are unremarkable except as noted in HPI and below Physical Exam Const General: cooperative and no acute distress Nutritional Appearance: well nourished Orientation/consciousness: patient oriented x3 Limitations: no limitations HEENT Head: Yes normocephalic and Yes atraumatic Ears: hearing grossly normal bilaterally Chest Other: Examination of the left axilla does reveal a softly enlarged lymph node in the lower axillary compartment. No tenderness is elicited with palpation to indicate underlying lymphadenitis. Resp Effort & Inspection: normal respiratory effort, no audible wheezes, no cough and no respiratory distress Cardio Jugular venous distension: no JVD GI Inspection: Yes normal to inspection Skin Other: Warm, dry, no rash Neuro General: patient oriented x3 Extrem Other: Tenderness is elicited in the posterior shoulder along the glenohumeral joint especially with raising of the arm laterally. No overlying skin changes are appreciated. General: Yes no clubbing, cyanosis or edema Assessment & Plan Assessment & Plan (1) Pain of left shoulder joint on movement: Code(s): M25.512 - Pain in left shoulder Category: Medical (2) Lymphadenopathy: Code(s): R59.1 - Generalized enlarged lymph nodes Category: Medical Plan 48-year-old male patient found to have a mildly enlarged lymph node in the left axilla but also significant tenderness with palpation of the left shoulder suggestive of a rotator cuff injury. I suggested further evaluation with MRI of the left shoulder. If this is abnormal I would recommend orthopedic referral. He does indeed have an enlarged lymph node in the left axilla but would wait until after the MRI is completed before deciding on any surgical removal. Patient expressed understanding and agrees with the plan. He will return following the MRI. Orders: Orders MR shoulder LT wo/w con Today M25.512 - Pain in left shoulder Coding Level of Care Code New Pt Level 4 (67865) Diagnoses Pain of left shoulder joint on movement M25.512 Lymphadenopathy R59.1
[2024-08-27 13:02] VITALS: BP 113/65; PULSE 62; BMI 27.6
== END 2024-08-27 13:12 | disposition home or self-care (01) ==
PROVIDERS: PCP Internal Medicine; Visit Provider Surgery
DX: M25.512 Pain in left shoulder (principal); R59.1 Generalized enlarged lymph nodes
CPT/HCPCS: 99204

== ENCOUNTER → 2024-08-27 12:53 | Outpatient (BNVA) | payer MEDICAID, SELFPAY | PROVIDERS: PCP Internal Medicine; Visit Provider Surgery | DX: R59.1 Generalized enlarged lymph nodes (principal); M25.512 Pain in left shoulder | CPT/HCPCS: 99202 ==

== ENCOUNTER 2024-09-26 12:37 | Outpatient (REF) | payer MEDICAID, SELFPAY ==
[2024-09-26] MEDS: gadobutroL 10 ML VIAL IVPUSH (13:46)
== END 2024-09-26 12:38 | disposition home or self-care (01) ==
LOC: HO.MRI 12:37
PROVIDERS: Visit Provider Surgery
DX: R22.32 Localized swelling, mass and lump, left upper limb (principal); M25.512 Pain in left shoulder
CPT/HCPCS: 73223; A9585

== ENCOUNTER → 2024-09-26 12:44 | Outpatient (BNV) | payer MEDICAID, SELFPAY | PROVIDERS: Visit Provider Radiology Diagnostic Radiology | DX: M25.512 Pain in left shoulder (principal) | CPT/HCPCS: 73223 ==